=== PATIENT | male | born 1960 | race Caucasian/White ===

== ENCOUNTER 2025-03-22 14:40 | Emergency (ER) | payer MEDICARE, SELFPAY ==
[2025-03-22] VITALS (24 sets, daily range): BP systolic 105–158; BP diastolic 66–85; PULSE 56–90; TEMP 37.2; O2SAT 92–95
--- NOTE | 2025-03-22 14:51 | ECG_ITS ---
The [facility] Test Date: 2025-03-22 Pat Name: MARY NUGENT Department: Room: - Gender: Male Credit Risk Specialist: : 1960 Requested By: Order Number: [id number] Reading MD: SRINI POLLOCK M.D. Measurements Intervals [place] Rate: 64 P: 50 [place]: 154 QRS: -12 QRSD: 80 T: 38 QT: 380 QTc: 390 Interpretive Statements 1100 Sinus rhythm 8102 Low QRS voltage in chest leads Abnormal ECG No previous ECG available for comparison Electronically Signed On 03-22-2025 18:25:03 EDT by SRINI POLLOCK M.D.
--- NOTE | 2025-03-22 14:51 | CT_ITS ---
The [address] [address] Patient Name: MARY NUGENT MRN: [id number] date: 1960 Sex: M Assigned Patient Location: ED.MAIN Current Patient Location: ED.MAIN Accession/Order Number: [id number] Exam Date: 03/22/2025 15:25 Report Date: 03/22/2025 15:29 At the request of: MARGARITA CHAN NP Procedure: CT head/brain wo con CT BRAIN WITHOUT CONTRAST: CLINICAL HISTORY: dizziness COMPARISON: None TECHNIQUE: Contiguous axial unenhanced images were obtained through the brain. This CT exam was performed using one or more following dose reduction techniques: Automated exposure control, adjustment of the mA and/or kV according to patient size, or use of iterative reconstruction technique. FINDINGS: There is no evidence of midline shift, intra or extra-axial fluid collection, hemorrhage or CT evidence of acute large vascular distribution stroke. Central involutional changes and moderate periventricular and subcortical hypoattenuation suggestive of chronic small vessel ischemic disease. Intracranial vascular calcifications. Cataract surgery. Visualized paranasal sinuses are clear. The surrounding soft tissues are normal. CT/CT head/brain wo con IMPRESSION: NO ACUTE INTRACRANIAL ABNORMALITY. MODERATE CHRONIC SMALL VESSEL CHANGE Impression dictated by: Andres Arias M.D. 03/22/2025 3:29 PM Dictation Location: [place] [address] Electronically authenticated by: [id number] Y Date: 03/22/2025 15:29
--- OUTSIDE RECORDS SUMMARY | 2025-03-22 14:51 | XMS_ITS | Encounter Summary ---
Author Organization [facility] Sys tem Address [id number] [address] [place] [address] Care Team Providers Care Forging Die Sinker Name Role Phone Pablo Kiran Primary Care Provider [phone] Reason for Visit * Reason Onset Date Comments PT Discharge 07/17/2024 Encounter Details Date Type Department Care Team (Late st Contact Info) Description 07/17/2024 Telephone [facility] [address] [place] [id number] Que Ohara MD [address] [place], [place] [id number] PT Discharge Social History Tobacco Use Types Packs/Day Years Used Date Smoking Tobacco: Never Smokeless Tobacco: Never Alcohol Use Standard Drinks/Week Comments Never 0 (1 standard drink = 0.6 oz pur e alcohol) C Utilities Answer Date Recorded In the past 12 months has [employer]), gas, oil, or water [employer] threatened to shut off services in your home? No 07/13/2024 AUDIT-C Answer Date Recorded Q1: How often do you have a drink containing alcohol? Never 07/13/2024 Q2: How many drinks containi ng alcohol do you have on a typical day when you are drinking? Patient does not drink Q3: How often do you have si x or more drinks on one occasion? Never 07/13/2024 PHQ-2 Answer Date Recorded Total Score 0 07/13/2024 PRAPARE - Transportation Answer Date Re corded In the past 12 months, has l ack of transportation kept you from medical appointments or from getting medications? No 06/21 In the past 12 months, has l ack of transportation kept you from meetings, work, or from getting things needed for daily living? No 07/13/2024 Housing Instability Answer Date Recorde d Are you worried or concerned that in the next two months you may not have stable housing that you own, rent or stay in as a part of a household? No 07/13/2024 Hunger Screening Answer Date Recorded Within the past 12 months we worried whether our food would run out before we got money to buy more. Never True 07/13/2024 Within the past 12 months th e food we bought just didn't last and we didn't have money to get more. Never True 07/13/2024 Sex and Gender Information Value Date Recorded Sex Assigned at Not on file Legal Sex Male 9:06 PM EDT Gender Identity Not on file Sexual Orientation Not on file documented as of this encounter Miscellaneous Notes * Telephone Encounter - Alaina Barry - 07/17/2024 12:51 PM EDT PER MESSAGE FROM THE 07/14/2024 D/C LIST: PER [facility]; PT DCD FROM [facility] DX:Elevated high sensitivity troponin with a peak of 2300 in the setting of acute PE -PT NEEDS TO F/U IN 1-2 WEEKS-[facility] * Telephone Encounter - Alem Wilkinson - 07/17/2024 12:51 PM EDT Pt lives closer to [facility] * Telephone Encounter - Sary Silva - 07/17/2024 12:51 PM EDT Called pt no answer unable to LMOM * Telephone Encounter - Sary Silva - 07/17/2024 12:51 PM EDT CALLED PT NO ANSWER UNABLE TO LM WILL SEND LETTER documented in this encounter Plan of Treatment Upcoming Encounters Date Type Department Care Team (Late st Contact Info) Description 04/30/2025 9:30 AM EDT Appointment [facility] - V[facility] [address] [place] [address] Trudy Asencio, DO [address] [place] [address] 05/07/2025 9:00 AM EDT Office Visit [facility] [address] [place] [address] Trudy Asencio, DO [address] [facility] [address] [place] [address] documented as of this encounter Visit Diagnoses Not on filedocumented in this encounter Additional Health Concerns Assessment Noted Time PHQ-9 Depression Total Score: 0 07/13/20 24 6:43 PM EDT documented as of this encounter Care Teams Forging Die Sinker Relationship Specialty Start Date End Date Pablo Kiran PA [address] [facility] [address] [place] [address] PCP - General Unknown Physician Specialty 07/12/24 documented as of this encounter
--- OUTSIDE RECORDS SUMMARY | 2025-03-22 14:51 | XMS_ITS | Clinical Summary ---
Author Organization [facility] Address [address] [place] [address] Care Team Providers [employer] Presser Name Role Phone Mic Kiran DO Primary Care Provider [phone] Allergies Active Allergy Reactions Criticality Noted Date Comments Nsaids Medium 12/18/2021 Has CKD-2 Penicillins Rash Medium 10/04/2021 Acetaminophen Medium 01/11/2023 Has elevated LFT's Medications cetirizine 10 MG tablet Take 1 tablet by mouth daily. OTC Active cholecalciferol 50 MCG (2000 UNIT) tablet Take 1 tablet by mouth daily. OTC Active Diclofenac sodium 1 % Gel gel Apply 2 g topically 2 times daily as needed. Cancel previous refills 100 g 4 Active Albuterol 108 (90 Base) MCG/ACT Aero Soln inhaler Inhale 2 puffs every 6 hours as needed for Shortness of Breath or Breathing Treatment. Cancel previous refills 18 g 4 Active Levothyroxine (Synthroid) 50 MCG tablet Take 1 tablet by mouth every morning before breakfast. Cancel previous refills. Dispense SAME GENERIC BRAND each refill 90 tablet 5 Active Montelukast 10 MG tablet Take 1 tablet by mouth at bedtime. Cancel previous refills 30 tablet 2 5 Active omeprazole [address] capsule Take 1 capsule by mouth every morning before breakfast. Cancel previous refills 30 capsule 2 5 Active Tamsulosin HCl 0.4 MG capsule Take 2 capsules by mouth at bedtime. Cancel previous refills 60 capsule 2 5 Active sildenafil citrate 100 MG tablet Take 0.5-1 tablets by mouth daily as needed. P.A. Denied. Patient to use [employer] and pay NEFF at [employer]. Cancel previous refills 6 tablet 2 5 Active fluticasone 50 MCG/ACT Suspension nasal spray 2 sprays each nostril daily 5 Active Meclizine 25 MG tablet Take 1 tablet by mouth 3 times daily as needed for Nausea / Vomiting. Cancel previous refills 90 tablet 5 Active Active Problems Problem Noted Date Diagnosed Date Aortic aneurysm without rupture 02/19/2025 Vertigo 02/05/2025 Screening for AAA (abdominal aortic aneurysm) Hypothyroidism due to acquired atrophy of thyroi d 02/05/2025 Supplemental oxygen dependen t-set at 2 LPM via [place] at bedtime 02/05/2025 Chronic midline low back pain with right-sided s ciatica 11/08/2024 History of influenza-Positive 01-01-24 11/08/2024 Family history of diabetes mellitus in sister Orthostasis 11/08/2024 Type 2 diabetes mellitus with proteinuria 2023 Proteinuria 08/21/2024 Type 2 diabetes mellitus wit h stage 2 chronic kidney disease, without long-term current use of insulin 08/16/2024 Hypertriglyceridemia 08/16/2024 History of pulmonary embolism-RLL on 07-12-24 Assessment & Plan (12/05/2024 3:19 PM EDT): Had PE 07/12/2024 (ER visit [facility]; after Shldr surgery) - on Eliquis per PCP (6 mos til 01/2025) - No recurrent VTE, bleeding. Need for immunization against influenza 08/15/20 Mild concentric right ventricular hypertrophy (R VH) 08/15/2024 Coronary artery calcification seen on CAT scan 1 10/15/2023 ASHD (arteriosclerotic heart disease) 08/15/2024 Partial nontraumatic tear of right rotator cuff 06/13/2024 Special screening for malignant neoplasm of pros sanchez 05/23/2024 Herpes zoster without complication-Left T4 derma tome 10/14/2023 Erectile dysfunction due to diseases classified elsewhere 09/30/2023 Chronic right shoulder pain 09/30/2023 Elevated LFTs 04/12/2023 Benign prostatic hyperplasia without lower urinary tract symptoms 04/12/2023 Pulmonary emphysema 01/11/2023 Kidney stone on left side 01/11/2023 Atherosclerosis of aorta 01/11/2023 Fatty liver 01/11/2023 Seasonal allergic rhinitis due to pollen 023 Near syncope 10/13/2022 Bradycardia 07/14/2022 History of pneumonia-Due to COVID-19 in -2021 0 04/17/2022 Diverticulosis of colon 04/17/2022 Lipoma of neck-4CM, left posterior neck-S/P Exci ortega 04/17/[address] nodules on CT 04/16/2022 Assessment & Plan (12/05/2024 2:57 PM EDT): - 04/15/2022 CT Chest without contrast reviewed: previous COVID19 PNA w/ bilat. Lung infiltrates on CT 10/04/21 - has Resolved; w/ residual minimal lung scarring in BLL. Previous scattered tiny lung nodules solid, less than 6 mm - Stable from 10/04/21; prob Benign. --- ffup CT 6 mos to monitor nodules and lung scarring; 10/16/22 - 11/19/2022 CT Chest w/o contrast reviewed: No acute, new lung findings. Old tiny lung nodules - Stable from 10/04/21 (RML 5 mm, RLL 6 mm). No new suspicious nodules or enlarged lymph nodes. Minimal bibasilar subpleural scarring - Similar to 03/2022. NO diffuse ILD, GGOs, pulm fibrosis UIP. --- ffup CT in 1 yr; 11/2023 - 02/25/2024 CT Chest w/o contrast reviewed: No acute, new lung findings. Old, small, tiny lung nodules 5 mm - Stable from 11/19/22 (RUL 5 mm, RML 5 mm). No new suspicious lung nodules or enlarged lymph nodes. COPD w/ mild ULP Emphysema, central bronchial airway thickening. --- follow-up CT Chest 1 year; 02/24/25 - prob Benign postinflammatory; fmr Smoker - ffup CT for stability - further evaluation, management pending results, clinical course. - Diagnostic (malignant vs benign) and management options discussed at length w/ pt; questions answered; and pt stated understanding and agreement. Assessment & Plan (05/24/2024 6:52 AM EDT): - 04/15/2022 CT Chest without contrast reviewed: previous COVID19 PNA w/ bilat. Lung infiltrates on CT 10/04/21 - has Resolved; w/ residual minimal lung scarring in BLL. Previous scattered tiny lung nodules solid, less than 6 mm - Stable from 10/04/21; prob Benign. --- ffup CT 6 mos to monitor nodules and lung scarring; 10/16/22 - 11/19/2022 CT Chest w/o contrast reviewed: No acute, new lung findings. Old tiny lung nodules - Stable from 10/04/21 (RML 5 mm, RLL 6 mm). No new suspicious nodules or enlarged lymph nodes. Minimal bibasilar subpleural scarring - Similar to 03/2022. NO diffuse ILD, GGOs, pulm fibrosis UIP. --- ffup CT in 1 yr; 11/2023 - 02/25/2024 CT Chest w/o contrast reviewed: No acute, new lung findings. Old, small, tiny lung nodules 5 mm - Stable from 11/19/22 (RUL 5 mm, RML 5 mm). No new suspicious lung nodules or enlarged lymph nodes. COPD w/ mild ULP Emphysema, central bronchial airway thickening. --- follow-up CT Chest 1 year; 02/24/25 - prob Benign postinflammatory; fmr Smoker - ffup CT for stability - further evaluation, management pending results, clinical course. - Diagnostic (malignant vs benign) and management options discussed at length w/ pt; questions answered; and pt stated understanding and agreement. Assessment & Plan (02/01/2023 6:27 AM EDT): - 04/15/2022 CT Chest without contrast reviewed: previous COVID19 PNA w/ bilat. Lung infiltrates on CT 10/04/21 - has Resolved; w/ residual minimal lung scarring in BLL. Previous scattered tiny lung nodules solid, less than 6 mm - Stable from 10/04/21; prob Benign. --- ffup CT 6 mos to monitor nodules and lung scarring; 10/16/22 - 11/19/2022 CT Chest w/o contrast reviewed: No acute, new lung findings. Old tiny lung nodules - Stable from 10/04/21 (RML 5 mm, RLL 6 mm). No new suspicious nodules or enlarged lymph nodes. Minimal bibasilar subpleural scarring - Similar to 03/2022. NO diffuse ILD, GGOs, pulm fibrosis UIP. --- ffup CT in 1 yr; 11/2023 - prob Benign postinflammatory - ffup CT for stability - further evaluation, management pending results, clinical course. - Diagnostic (malignant vs benign) and management options discussed at length w/ pt; questions answered; and pt stated understanding and agreement. Assessment & Plan (11/02/2022 1:35 PM EST): - 04/15/2022 CT Chest without contrast reviewed: previous COVID19 PNA w/ bilat. Lung infiltrates on CT 10/04/21 - has Resolved; w/ residual minimal lung scarring in BLL. Previous scattered tiny lung nodules solid, less than 6 mm - Stable from 10/04/21; prob Benign. --- ffup CT 6 mos to monitor nodules and lung scarring; 10/16/22 - prob Benign postinflammatory - ffup CT for stability - further evaluation, management pending results, clinical course. - Diagnostic (malignant vs benign) and management options discussed at length w/ pt; questions answered; and pt stated understanding and agreement. Assessment & Plan (06/05/2022 2:23 PM EDT): - 04/15/2022 CT Chest without contrast reviewed: previous COVID19 PNA w/ bilat. Lung infiltrates on CT 10/04/21 - has Resolved; w/ residual minimal lung scarring in BLL. Previous scattered tiny lung nodules solid, less than 6 mm - Stable from 10/04/21; prob Benign. --- ffup CT 6 mos to monitor nodules and lung scarring; 10/16/22 - prob Benign postinflammatory - ffup CT for stability - further evaluation, management pending results, clinical course. - Diagnostic (malignant vs benign) and management options discussed at length w/ pt; questions answered; and pt stated understanding and agreement. Mild pulmonary hypertension 04/15/2022 Secondary pulmonary arterial hypertension 2021 Assessment & Plan (12/05/2024 3:03 PM EDT): May develop secondary Pulmonary Hypertension related to cardiopulmonary disease (WHO Grp 3, 2). - 04/15/2022 Echocardiogram reviewed: Normal left and right heart function (LVEF >55%) mild pulmonary hypertension RVSP 37 likely related to underlying lung disease; with no signs of severe pulmonary hypertension ( RV, RA normal, trace TR). - monitor Echocardiogram as indicated - consider RHC Right heart catheterization, as indicated - optimize underlying conditions - consider sleep study, as indicated Assessment & Plan (05/24/2024 6:48 AM EDT): May develop secondary Pulmonary Hypertension related to cardiopulmonary disease (WHO Grp 3, 2). - 04/15/2022 Echocardiogram reviewed: Normal left and right heart function (LVEF >55%) mild pulmonary hypertension RVSP 37 likely related to underlying lung disease; with no signs of severe pulmonary hypertension ( RV, RA normal, trace TR). - monitor Echocardiogram as indicated - consider RHC Right heart catheterization, as indicated - optimize underlying conditions - consider sleep study, as indicated Assessment & Plan (02/01/2023 6:26 AM EDT): May develop secondary Pulmonary Hypertension related to cardiopulmonary disease (WHO Grp 3, 2). - 04/15/2022 Echocardiogram reviewed: Normal left and right heart function (LVEF >55%) mild pulmonary hypertension RVSP 37 likely related to underlying lung disease; with no signs of severe pulmonary hypertension ( RV, RA normal, trace TR). - monitor Echocardiogram as indicated - consider RHC Right heart catheterization, as indicated - optimize underlying conditions - consider sleep study, as indicated Assessment & Plan (11/02/2022 1:34 PM EST): May develop secondary Pulmonary Hypertension related to cardiopulmonary disease (WHO Grp 3, 2). - 04/15/2022 Echocardiogram reviewed: Normal left and right heart function (LVEF >55%) mild pulmonary hypertension RVSP 37 likely related to underlying lung disease; with no signs of severe pulmonary hypertension ( RV, RA normal, trace TR). - monitor Echocardiogram as indicated - consider RHC Right heart catheterization, as indicated - optimize underlying conditions - consider sleep study, as indicated Assessment & Plan (03/09/2022 6:56 AM EDT): May develop secondary Pulmonary Hypertension related to cardiopulmonary disease (WHO Grp 3, 2). - monitor Echocardiogram as indicated - consider RHC Right heart catheterization, as indicated - optimize underlying conditions - consider sleep study, as indicated Reactive airway disease without complication Assessment & Plan (12/05/2024 3:02 PM EDT): Fmr Smoker quit 2003; some chronic shortness of breath, cough. Early Emphysema BUL CTPE 09/2021 - was on albuterol, montelukast, cetirizine - may have more of RAD rather than mitchell obstruction/COPD - 11/19/2022 PFT: Spirometry - NORMAL, FEV1/FVC 76%, FEV1 3.21L 97% pred., FVC 4.24L 97% pred. Significant response to bronchodilator: NO or mild borderline. Lung Volume - NORMAL TLC 5/50L 89% pred., RV 48%. Diffusing Capacity: SLIGHTLY REDUCED DLCO 79% pred., DL/VA 87% (prob. Extraparenchymal cause). Results do not exclude asthma, RAD. - 04/15/2022 PFT: Spirometry within Normal limits; FEV1 2.78L 84% pred., FVC 3.87L 88%, FEV1/FVC 72%. Possible Mild Obstruction based on presence of mild or borderline response to bronchodilator or reversible airway obstruction (e.g., asthma, reactive airway disease). Possible Mld Restriction VC 78%; TLC not done. Mildly reduced diffusing capacity DLCO 69%, DL/VA 90% (which normalizes when adjusted for lung volume, suggesting extraparenchymal cause). - Consider LAMA/LABA or try triple tx Trelegy, Breztri, or other inhaler regimen, as indic; if feasible; albuterol as needed; use spacer - 06/05/22: cont Albuterol prn - 02/01/23: albuterol prn - 05/24/24 cont albuterol prn; maint inhalers, if needed - 12/05/24 cont Albuterol prn - consider Daliresp subseq as indic., as tolerated; if feasible - may also use duonebs; budesonide+formoterol nebs alternatively - patient benefits from nebulizer treatments - Inhaler technique teaching done/reviewed prev.; rinse mouth after inhaler use, especially steroid inhalers - Smoking cessation reinforced: Quit 2003 - monitor PFT prn, as indicated - monitor imaging prn, Chest radiograph as needed (CT Chest as indicated) - Pulmonary rehab program, if feasible; rec to stay active (PFT, LVEF may not qualify) - Influenza, pneumococcal, COVID19, pulm vaccines recommended, updated Assessment & Plan (05/24/2024 6:49 AM EDT): Fmr Smoker quit 2003; some chronic shortness of breath, cough. Early Emphysema BUL CTPE 09/2021 - was on albuterol, montelukast, cetirizine - may have more of RAD rather than mitchell obstruction/COPD - 11/19/2022 PFT: Spirometry - NORMAL, FEV1/FVC 76%, FEV1 3.21L 97% pred., FVC 4.24L 97% pred. Significant response to bronchodilator: NO or mild borderline. Lung Volume - NORMAL TLC 5/50L 89% pred., RV 48%. Diffusing Capacity: SLIGHTLY REDUCED DLCO 79% pred., DL/VA 87% (prob. Extraparenchymal cause). Results do not exclude asthma, RAD. - 04/15/2022 PFT: Spirometry within Normal limits; FEV1 2.78L 84% pred., FVC 3.87L 88%, FEV1/FVC 72%. Possible Mild Obstruction based on presence of mild or borderline response to bronchodilator or reversible airway obstruction (e.g., asthma, reactive airway disease). Possible Mld Restriction VC 78%; TLC not done. Mildly reduced diffusing capacity DLCO 69%, DL/VA 90% (which normalizes when adjusted for lung volume, suggesting extraparenchymal cause). - Consider LAMA/LABA or try triple tx Trelegy, Breztri, or other inhaler regimen, as indic; if feasible; albuterol as needed; use spacer - 9/16/22: cont Albuterol prn - 02/01/23: albuterol prn - 05/24/24 cont albuterol prn; maint inhalers, if needed - consider Daliresp subseq as indic., as tolerated; if feasible - may also use duonebs; budesonide+formoterol nebs alternatively - patient benefits from nebulizer treatments - Inhaler technique teaching done/reviewed prev.; rinse mouth after inhaler use, especially steroid inhalers - Smoking cessation reinforced: Quit 2003 - monitor PFT prn, as indicated - monitor imaging prn, Chest radiograph as needed (CT Chest as indicated) - Pulmonary rehab program, if feasible; rec to stay active (PFT, LVEF may not qualify) - Influenza, pneumococcal, COVID19 vaccines recommended, updated Assessment & Plan (02/01/2023 6:28 AM EDT): Fmr Smoker quit 2003; some chronic shortness of breath, cough. Early Emphysema BUL CTPE 09/2021 - was on albuterol, montelukast, cetirizine - may have more of RAD rather than mitchell obstruction/COPD - 11/19/2022 PFT: Spirometry - NORMAL, FEV1/FVC 76%, FEV1 3.21L 97% pred., FVC 4.24L 97% pred. Significant response to bronchodilator: NO or mild borderline. Lung Volume - NORMAL TLC 5/50L 89% pred., RV 48%. Diffusing Capacity: SLIGHTLY REDUCED DLCO 79% pred., DL/VA 87% (prob. Extraparenchymal cause). Results do not exclude asthma, RAD. - 04/15/2022 PFT: Spirometry within Normal limits; FEV1 2.78L 84% pred., FVC 3.87L 88%, FEV1/FVC 72%. Possible Mild Obstruction based on presence of mild or borderline response to bronchodilator or reversible airway obstruction (e.g., asthma, reactive airway disease). Possible Mld Restriction VC 78%; TLC not done. Mildly reduced diffusing capacity DLCO 69%, DL/VA 90% (which normalizes when adjusted for lung volume, suggesting extraparenchymal cause). - Consider LAMA/LABA or try triple tx Trelegy, Breztri, or other inhaler regimen, as indic; if feasible; albuterol as needed; use spacer - 06/05/22: cont Albuterol prn - 02/01/23: albuterol prn - consider Daliresp subseq as indic., as tolerated; if feasible - may also use duonebs; budesonide+formoterol nebs alternatively - patient benefits from nebulizer treatments - Inhaler technique teaching done/reviewed prev.; rinse mouth after inhaler use, especially steroid inhalers - Smoking cessation reinforced: Quit 2003 - monitor PFT prn, as indicated - monitor imaging prn, Chest radiograph as needed (CT Chest as indicated) - Pulmonary rehab program, if feasible; rec to stay active (PFT, LVEF may not qualify) - Influenza, pneumococcal, COVID19 vaccines recommended, updated Assessment & Plan (11/02/2022 1:35 PM EST): Fmr Smoker quit 2003; some chronic shortness of breath, cough. Early Emphysema BUL CTPE 09/2021 - was on albuterol, montelukast, cetirizine - may have more of RAD rather than mitchell obstruction/COPD - 04/15/2022 PFT: Spirometry within Normal limits; FEV1 2.78L 84% pred., FVC 3.87L 88%, FEV1/FVC 72%. Possible Mild Obstruction based on presence of mild or borderline response to bronchodilator or reversible airway obstruction (e.g., asthma, reactive airway disease). Possible Mld Restriction VC 78%; TLC not done. Mildly reduced diffusing capacity DLCO 69%, DL/VA 90% (which normalizes when adjusted for lung volume, suggesting extraparenchymal cause). - Consider LAMA/LABA or try triple tx Trelegy, Breztri, or other inhaler regimen, as indic; if feasible; albuterol as needed; use spacer - 06/05/22: cont Albuterol prn - consider Daliresp subseq as indic., as tolerated; if feasible - may also use duonebs; budesonide+formoterol nebs alternatively - patient benefits from nebulizer treatments - Inhaler technique teaching done/reviewed prev.; rinse mouth after inhaler use, especially steroid inhalers - Smoking cessation reinforced: Quit 2003 - monitor PFT prn, as indicated - monitor imaging prn, Chest radiograph as needed (CT Chest as indicated) - Pulmonary rehab program, if feasible; rec to stay active (PFT, LVEF may not qualify) - Influenza, pneumococcal, COVID19 vaccines recommended, updated Assessment & Plan (06/05/2022 2:25 PM EDT): Fmr Smoker quit 2003; some chronic shortness of breath, cough. Early Emphysema BUL CTPE 09/2021 - was on albuterol, montelukast, cetirizine - may have more of RAD rather than mitchell obstruction/COPD - 04/15/2022 PFT: Spirometry within Normal limits; FEV1 2.78L 84% pred., FVC 3.87L 88%, FEV1/FVC 72%. Possible Mild Obstruction based on presence of mild or borderline response to bronchodilator or reversible airway obstruction (e.g., asthma, reactive airway disease). Possible Mld Restriction VC 78%; TLC not done. Mildly reduced diffusing capacity DLCO 69%, DL/VA 90% (which normalizes when adjusted for lung volume, suggesting extraparenchymal cause). - Consider LAMA/LABA or try triple tx Trelegy, Breztri, or other inhaler regimen, as indic; if feasible; albuterol as needed; use spacer - 06/05/22: cont Albuterol prn - consider Daliresp subseq as indic., as tolerated; if feasible - may also use duonebs; budesonide+formoterol nebs alternatively - patient benefits from nebulizer treatments - Inhaler technique teaching done/reviewed prev.; rinse mouth after inhaler use, especially steroid inhalers - Smoking cessation reinforced: Quit 2003 - monitor PFT prn, as indicated - monitor imaging prn, Chest radiograph as needed (CT Chest as indicated) - Pulmonary rehab program, if feasible; rec to stay active (PFT, LVEF may not qualify) - Influenza, pneumococcal, COVID19 vaccines recommended, updated Assessment & Plan (03/09/2022 10:26 AM EDT): Fmr Smoker quit 2003; some chronic shortness of breath, cough. Early Emphysema BUL CTPE 09/2021 - was on albuterol, montelukast, cetirizine - Consider LAMA/LABA or try triple tx Trelegy, Breztri, or other inhaler regimen, as indic; if feasible; albuterol as needed; use spacer - consider Daliresp subseq as indic., as tolerated; if feasible - may also use duonebs; budesonide+formoterol nebs alternatively - patient benefits from nebulizer treatments - Inhaler technique teaching done/reviewed prev.; rinse mouth after inhaler use, especially steroid inhalers - Smoking cessation reinforced: Quit 2003 - monitor PFT prn, as indicated - monitor imaging prn, Chest radiograph as needed (CT Chest as indicated) - Pulmonary rehab program, if feasible; rec to stay active - Influenza, pneumococcal, COVID19 vaccines recommended, updated Occipital neuralgia of left side 02/17/2022 Left inguinal hernia 01/23/2022 Spondylosis of lumbar region without myelopathy or radiculopathy 01/23/2022 Hepatitis A immune 12/20/2021 Hyperbilirubinemia 12/20/2021 Hyperlipidemia LDL goal <70 12/18/2021 CKD (chronic kidney disease) stage 2, GFR 60-89 ml/min 12/18/2021 Idiopathic chronic gout without tophus Overweight (BMI 25.0-29.9) 12/16/2021 Nodule of middle lobe of right lung-6 mm 022 Assessment & Plan (12/05/2024 2:58 PM EDT): - 10/04/21 CTPE Reviewed: No PE, BUL GGOs w/ mild subpleural scarring, BLL subpleural scarring, No obvious honeycombing; RML pleural-based 6 mm nodule, no enlarged nodes. Early Emphysematous changes BUL. IMPRESSION: No evidence for pulmonary embolism, aortic aneurysm, or aortic dissection. Patchy bilateral upper lobe groundglass airspace disease with subpleural scarring and fibrotic changes with honeycombing. Bilateral lower lobe pleural-based scarring. Correlate for atypical viral pneumonitis. Middle lobe 6 mm pleural-based pulmonary nodule. Consider follow-up. 3 mm nonobstructive left renal calculus. Extensive colonic diverticulosis without acute diverticulitis. - prob Benign, post-inflammatory; fmr Smoker quit 2003 - ffup CT for stability; below - 04/15/2022 CT Chest without contrast reviewed: previous COVID19 PNA w/ bilat. Lung infiltrates on CT 10/04/21 - has Resolved; w/ residual minimal lung scarring in BLL. Previous scattered tiny lung nodules solid, less than 6 mm - Stable from 10/04/21; prob Benign. --- ffup CT 6 mos to monitor nodules and lung scarring; 10/16/22 - 02/25/2024 CT Chest w/o contrast reviewed: No acute, new lung findings. Old, small, tiny lung nodules 5 mm - Stable from 11/19/22 (RUL 5 mm, RML 5 mm). No new suspicious lung nodules or enlarged lymph nodes. COPD w/ mild ULP Emphysema, central bronchial airway thickening. --- follow-up CT Chest 1 year; 02/24/25 - further evaluation, management pending results, clinical course. - Diagnostic (malignant vs benign) and management options discussed at length w/ pt; questions answered; and pt stated understanding and agreement. Assessment & Plan (06/05/2022 2:22 PM EDT): - 10/04/21 CTPE Reviewed: No PE, BUL GGOs w/ mild subpleural scarring, BLL subpleural scarring, No obvious honeycombing; RML pleural-based 6 mm nodule, no enlarged nodes. Early Emphysematous changes BUL. IMPRESSION: No evidence for pulmonary embolism, aortic aneurysm, or aortic dissection. Patchy bilateral upper lobe groundglass airspace disease with subpleural scarring and fibrotic changes with honeycombing. Bilateral lower lobe pleural-based scarring. Correlate for atypical viral pneumonitis. Middle lobe 6 mm pleural-based pulmonary nodule. Consider follow-up. 3 mm nonobstructive left renal calculus. Extensive colonic diverticulosis without acute diverticulitis. - prob Benign, post-inflammatory; fmr Smoker quit 2003 - ffup CT for stability; below - 04/15/2022 CT Chest without contrast reviewed: previous COVID19 PNA w/ bilat. Lung infiltrates on CT 10/04/21 - has Resolved; w/ residual minimal lung scarring in BLL. Previous scattered tiny lung nodules solid, less than 6 mm - Stable from 10/04/21; prob Benign. --- ffup CT 6 mos to monitor nodules and lung scarring; 10/16/22 - further evaluation, management pending results, clinical course. - Diagnostic (malignant vs benign) and management options discussed at length w/ pt; questions answered; and pt stated understanding and agreement. Assessment & Plan (03/09/2022 7:00 AM EDT): - 10/04/21 CTPE Reviewed: No PE, BUL GGOs w/ mild subpleural scarring, BLL subpleural scarring, No obvious honeycombing; RML pleural-based 6 mm nodule, no enlarged nodes. Early Emphysematous changes BUL. IMPRESSION: No evidence for pulmonary embolism, aortic aneurysm, or aortic dissection. Patchy bilateral upper lobe groundglass airspace disease with subpleural scarring and fibrotic changes with honeycombing. Bilateral lower lobe pleural-based scarring. Correlate for atypical viral pneumonitis. Middle lobe 6 mm pleural-based pulmonary nodule. Consider follow-up. 3 mm nonobstructive left renal calculus. Extensive colonic diverticulosis without acute diverticulitis. - prob Benign, post-inflammatory; fme Smoker quit 2003 - ffup CT for stability - further evaluation, management pending results, clinical course. - Diagnostic (malignant vs benign) and management options discussed at length w/ pt; questions answered; and pt stated understanding and agreement. Vitamin D deficiency 12/16/2021 Hypoalbuminemia 12/16/2021 Elevated blood pressure reading 12/16/2021 History of [id number] 10-04-2021 Former smoker 12/16/2021 History of ETOH abuse 12/16/2021 Gastroesophageal reflux disease without esophagi tis 12/16/2021 Migraine with aura and witho ut status migrainosus, not intractable 12/16/2021 Well adult exam 12/16/2021 Snoring 12/16/2021 S/P lumbar discectomy 12/16/2021 Asymptomatic varicose veins of right lower extre mity 12/16/2021 Bilateral plantar fasciitis 12/16/2021 Resolved Problems Problem Noted Date Diagnosed Date Resolved Date Acute pulmonary embolism 07/14/2024 RUANO (dyspnea on exertion) 05/23/2024 Influenza A-positive 01-01-24 01/02/2024 11/08/2024 Urinary hesitancy 10/13/2023 06/13/2024 SOB (shortness of breath) 01/11/2023 Special screening for malign ant neoplasm of prostate 01/11/2023 01/11/2023 Chronic midline low back alvarado n without sciatica 04/17/2022 11/08/2024 Chronic pain of both shoulders 04/17/2022 09/30/2023 Insomnia 04/17/2022 01/11/2023 Episodic lightheadedness 04/17/2022 Blurry vision, right eye 04/17/2022 Post-acute COVID-19 syndrome 03/09/2022 05/24/2024 Interstitial lung disease 03/09/2022 Assessment & Plan (02/01/2023 6:26 AM EDT): Chest radiograph w/ some increased lung markings; possible element of Interstitial lung disease ILD, postinflammatory fibrosis s/p COVID19 PNA 09/2021 - 10/04/21 CTPE Reviewed: No PE, BUL GGOs w/ mild subpleural scarring, BLL subpleural scarring, No obvious honeycombing; RML pleural-based 6 mm nodule, no enlarged nodes. Early Emphysematous changes BUL. - ffup CT Chest, below - 04/15/2022 CT Chest without contrast reviewed: previous COVID19 PNA w/ bilat. Lung infiltrates on CT 10/04/21 - has Resolved; w/ residual minimal lung scarring in BLL. Previous scattered tiny lung nodules solid, less than 6 mm - Stable from 10/04/21; prob Benign. --- ffup CT 6 mos to monitor nodules and lung scarring; 10/16/22 - 11/19/2022 CT Chest w/o contrast reviewed: No acute, new lung findings. Old tiny lung nodules - Stable from 10/04/21 (RML 5 mm, RLL 6 mm). No new suspicious nodules or enlarged lymph nodes. Minimal bibasilar subpleural scarring - Similar to 03/2022. NO diffuse ILD, GGOs, pulm fibrosis UIP. --- ffup CT in 1 yr to monitor nodules; 11/2023 - monitor chest imaging, PFT, 6mwt prn, as indic - further evaluation, management pending results, clinical course. Assessment & Plan (11/02/2022 1:33 PM EST): Chest radiograph w/ some increased lung markings; possible element of Interstitial lung disease ILD, postinflammatory fibrosis s/p COVID19 PNA 09/2021 - 10/04/21 CTPE Reviewed: No PE, BUL GGOs w/ mild subpleural scarring, BLL subpleural scarring, No obvious honeycombing; RML pleural-based 6 mm nodule, no enlarged nodes. Early Emphysematous changes BUL. - ffup CT Chest, below - 04/15/2022 CT Chest without contrast reviewed: previous COVID19 PNA w/ bilat. Lung infiltrates on CT 10/04/21 - has Resolved; w/ residual minimal lung scarring in BLL. Previous scattered tiny lung nodules solid, less than 6 mm - Stable from 10/04/21; prob Benign. --- ffup CT 6 mos to monitor nodules and lung scarring; 10/16/22 - monitor chest imaging, PFT, 6mwt prn, as indic - further evaluation, management pending results, clinical course. Assessment & Plan (06/05/2022 2:22 PM EDT): Chest radiograph w/ some increased lung markings; possible element of Interstitial lung disease ILD, postinflammatory fibrosis s/p COVID19 PNA 09/2021 - 10/04/21 CTPE Reviewed: No PE, BUL GGOs w/ mild subpleural scarring, BLL subpleural scarring, No obvious honeycombing; RML pleural-based 6 mm nodule, no enlarged nodes. Early Emphysematous changes BUL. - ffup CT Chest, below - 04/15/2022 CT Chest without contrast reviewed: previous COVID19 PNA w/ bilat. Lung infiltrates on CT 10/04/21 - has Resolved; w/ residual minimal lung scarring in BLL. Previous scattered tiny lung nodules solid, less than 6 mm - Stable from 10/04/21; prob Benign. --- ffup CT 6 mos to monitor nodules and lung scarring; 10/16/22 - monitor chest imaging, PFT, 6mwt prn, as indic - further evaluation, management pending results, clinical course. Assessment & Plan (03/09/2022 6:58 AM EDT): Chest radiograph w/ some increased lung markings; possible element of Interstitial lung disease ILD, postinflammatory fibrosis s/p COVID19 PNA 09/2021 - 10/04/21 CTPE Reviewed: No PE, BUL GGOs w/ mild subpleural scarring, BLL subpleural scarring, No obvious honeycombing; RML pleural-based 6 mm nodule, no enlarged nodes. Early Emphysematous changes BUL. - ffup CT Chest - monitor chest imaging, PFT, 6mwt prn, as indic - further evaluation, management pending results, clinical course. Hyperglycemia 12/16/2021 08/16/2024 SOB (shortness of breath) 12/16/2021 Caffeine abuse, continuous 12/16/2021 0 01/23/2022 Elevated liver enzymes 12/16/202104/12 Pneumonia due to COVID-19 vi adrien-Positive 10-04-2021 12/16/2021 04/17/2022 Assessment & Plan (03/09/2022 6:55 AM EDT): Seen ED 10/04/21; see Post-COVID synd. Atypical chest pain 12/16/2021 10/13/19 23 Chronic fatigue 12/16/2021 04/12/2023 Goiter 12/16/2021 04/17/2022 Costochondritis 12/16/2021 10/13/2022 Encounters Date Type Department Care Team Description 02/27/2025 8:15 AM EDT - 02/27/2025 11:59 PM EDT Hospital Encounter [facility] Pulmonary [address] [place] [address] Schuyler Dejesus MD Discharge Disposition: Home or Self Care 02/27/2025 8:15 AM EDT - 02/27/2025 11:59 PM EDT Hospital Encounter [facility] Pulmonary [address] [place] [address] Schuyler Dejesus MD Discharge Disposition: Home or Self Care 02/27/2025 8:14 AM EDT Hospital Encounter [facility] CT Scan [address] [place] [address] Schuyler Dejesus MD Discharge Disposition: Home or Self Care 02/19/2025 8:00 AM EDT - 02/19/2025 11:59 PM EDT Hospital Encounter [facility] Ultrasound [address] [place] [address] Mic Kiran, Discharge Disposition: Home or Self Care 02/19/2025 Results Follow-Up [address] [place] [address] Mic Kiran, DO US AORTA RETROPERITONEAL 02/05/2025 9:30 AM EDT Office Visit [address] [address] Mic Kiran, DO Type 2 diabetes mellitus with stage 2 chronic kidney disease, without long-term current use of insulin (Primary Dx); Type 2 diabetes mellitus with proteinuria; Aortic aneurysm without rupture, unspecified portion of aorta-3/17 CM on AOrta US done 02-19-25; Hyperlipidemia LDL goal <70; Hypertriglyceridemia; Hypothyroidism due to acquired atrophy of thyroid; Hypoalbuminemia; Idiopathic chronic gout without tophus, unspecified site; Vertigo; Hyperbilirubinemia; Multiple lung nodules on CT; Nodule of middle lobe of right lung-6 mm; Pulmonary emphysema, unspecified emphysema type; Seasonal allergic rhinitis due to pollen; Mild intermittent reactive airway disease without complication; Snoring; Supplemental oxygen dependent-set at 2 LPM via [place] at bedtime; ASHD (arteriosclerotic heart disease); Asymptomatic varicose veins of right lower extremity; Atherosclerosis of aorta; Coronary artery calcification seen on CAT scan; Bradycardia; Elevated blood pressure reading; Migraine with aura and without status migrainosus, not intractable; Mild concentric right ventricular hypertrophy (RVH); Mild pulmonary hypertension; Near syncope; Orthostasis; Secondary pulmonary arterial hypertension; Diverticulosis of colon; Fatty liver; Gastroesophageal reflux disease without esophagitis; Vitamin D deficiency; Occipital neuralgia of left side; Chronic midline low back pain with right-sided sciatica; Bilateral plantar fasciitis; Chronic right shoulder pain; Spondylosis of lumbar region without myelopathy or radiculopathy; Partial nontraumatic tear of right rotator cuff; Benign prostatic hyperplasia without lower urinary tract symptoms; CKD (chronic kidney disease) stage 2, GFR 60-89 ml/min; Kidney stone on left side; Elevated LFTs; Erectile dysfunction due to diseases classified elsewhere; Lipoma of neck-4CM, left posterior neck-S/P Excision; Former smoker; Hepatitis A immune; Overweight (BMI 25.0-29.9); Proteinuria, unspecified type; S/P lumbar discectomy; Left inguinal hernia; History of pulmonary embolism-RLL on 07-12-24; History of pneumonia-Due to COVID-19 in ; History of influenza-Positive 01-01-24; History of ETOH abuse; Family history of diabetes mellitus in sister; Screening for AAA (abdominal aortic aneurysm) 01/24/2025 Results Follow-Up [facility] Medicine [address] [facility] [address] [place] [address] Mic Kiran, DO VITAMIN D (25-HYDROXY,TOTAL), URIC ACID, TSH, Additional followed-up results: 4 01/09/2025 [facility]phone [facility] [address] [phone] Misty Puentes LPN Results 01/08/2025 Results Follow-Up [facility] Pulmonary Disease [facility] [address] [place] [address] Schuyler Dejesus MD MONITOR REPORTS (SCANNED) 01/05/2025 10:00 AM EDT Clinical Support Encounter [facility] Sleep Lab [address] [place] [address] Schuyler Dejesus MD Secondary pulmonary arterial hypertension; Chronic obstructive pulmonary disease, unspecified COPD type 01/02/2025 9:40 AM EDT Office Visit [facility] Orthopedics [address] [place] [address] Michael Davidson MD S/P rotator cuff repair (Primary Dx) 01/02/2025 Telephone [facility] [address] [address] Misty Puentes LPN Results 01/02/2025 Results Follow-Up [facility] Pulmonary [place] [address] [facility] 1st [place] [id number] Schuyler Dejesus MD ECHOCARDIOGRAM 12/29/2024 7:19 AM EDT - 12/29/2024 11:59 PM EDT Hospital Encounter [facility] [address] [place] [address] Schuyler Dejesus MD Discharge Disposition: Home or Self Care from Last 3 Months Immunizations Immunization Administration Dates Next Due [id number] COVID-19 monovalen t vaccine, AD26, Amauri 0.5 ML 12/27/2020 Influenza Vaccine, MDCK PF 08/15/2024 Influenza, injectable, quadrivalent, preservativ e free 07/14/2022 Td Vaccine, Unspecified 12/19/2015 Family History Medical History Relation Name Comments No known problems Father Arthritis - Osteo Mother Diabetes Sister Relation Name Status Comments Father Mother Sister Social History Tobacco Use Types Packs/Day Years Used Date Smoking Tobacco: Former Cigarettes 2 26 0 03/20/1978 - 03/20/2004 Smokeless Tobacco: Never Tobacco Cessation:Counseling Given: No Alcohol Use Standard Drinks/Week Comments Not Currently 0 (1 standard drink = 0.6 oz pur e alcohol) HX ETOH abuse. Quit in 1983 Overall Financial Resource Strain (CARDIA) Answe r Date Recorded How hard is it for you to pa y for the very basics like food, housing, medical care, and heating? Not hard at all 02/05/2025 NCSS - Food Insecurity Answer Date Gregor rded Within the past 12 months, d id you worry that your food would run out before you got money to buy more? No 02/05/2025 Within the past 12 months, d id the food you bought just not last and you didn t have money to get more? Yes 02/05/2025 NCSS - Housing/Utilities Answer Date Re corded Do you have housing? Yes 02/05/2025 Are you worried about losing your housing? No 02/05/2025 Within the past 12 months, h ave you or your family members you live with been unable to get utilities (heat, electricity) when it was really needed? No 02/05/2025 NCSS - Transportation Answer Date Recor ded Within the past 12 months, h as lack of transportation kept you from medical appointments, getting your medicines, non-medical meetings or appointments, work, or from getting things that you need? No 02/05/2025 NCSS - Utilities Answer Date Recorded Within the past 12 months, h ave you or your family members you live with been unable to get utilities (heat, electricity) when it was really needed? No 02/05/2025 Sex and Gender Information Value Date Recorded Sex Assigned at Not on file Legal Sex Male 9:07 PM EST Gender Identity Not on file Sexual Orientation Not on file Last Filed Vital Signs Vital Sign Reading Time Taken Comments Blood Pressure 137/67 02/05/2025 9:23 AM EDT Pulse 52 02/05/2025 9:23 AM EDT Temperature 36.6 C (97.9 F) 02/05/2025 9:23 AM EDT Respiratory Rate 14 02/05/2025 9:23 AM EDT Oxygen Saturation 98% 02/05/2025 9:23 AM EDT Inhaled Oxygen Concentration - - Weight 81.6 kg (180 lb) 02/05/2025 9:23 AM EDT Height 172.7 cm (5' 8 ) 02/05/2025 9:23 AM EDT Body Mass Index 27.37 02/05/2025 9:23 AM EDT Plan of Treatment Upcoming Encounters Date Type Department Care Team (Late st Contact Info) Description 05/02/2025 9:30 AM EDT Office Visit [facility] Family Medicine [address] [facility] [address] [place] [address] Mic Kiran DO [address] [facility] [address] [place] [address] 06/07/2025 8:00 AM EDT Office Visit [facility] Pulmonary Disease [facility] [address] [facility] [address] [place] [address] Michael Boyce, FINANCIAL SYSTEMS MANAGER [address] [place] [address] 07/09/2025 8:20 AM EDT Office Visit [facility] Orthopedics [address] [place] [address] Michael Davidson MD [address] [facility] [place] [address] 08/06/2025 9:30 AM EST Office Visit [facility] Optometry [place] [address] [place] [address] Alin Donato, OD [address] [facility], [place] [id number] Health Maintenance Due Date Last Done Comments PSA 06/08/2025 06/08/2024, 05/2023, 01/11/2023, Additional history exists TSH 02/19/2026 02/19/2025, 03/2025, 08/16/2024, Additional history exists COLONOSCOPY 05/14/2029 05/14/2022 LIPID SCREENING 01/24/2030 01/24/2025, 07/22, 06/08/2024, Additional history exists HIV SCREENING DISCUSSION Discontinued 12/16/2021 HEPATITIS C VIRUS SCREENING Completed 12/18/2021, 12/16/2021 (Declined) COLORECTAL CANCER SCREENING DISCUSSION Discontinued 05/14/2022, 04/17/2022, 01/23/2022, Additional history exists COVID-19 VACCINE Discontinued 07/14/2022 (Dec lined), 04/17/2022 (Declined), 01/23/2022 (Declined), Additional history exists PNEUMOCOCCAL VACCINE SERIES Discontinued 02/03/2024 (Declined), 10/13/2023 (Declined), 09/30/2023 (Declined), Additional history exists TDAP (ADULT) Addressed 02/03/2024 (Decl ined), 09/30/2023 (Declined), 07/20/2023 (Declined), Additional history exists Overridden with the intention of not completing the topic TETANUS Discontinued 02/03/2024 (Decl ined), 10/13/2023 (Declined), 09/30/2023 (Declined), Additional history exists ZOSTER (SHINGLES) VACCINE Addressed 2023 (Declined), 10/13/2023 (Declined), 09/30/2023 (Declined), Additional history exists Overridden with the intention of not completing the topic PROSTATE CANCER SCREENING DISCUSSION Discontinued 06/08/2024, 06/08/2024, 05/23/2024, Additional history exists INFLUENZA VACCINE Discontinued 08/15/2024, (Declined), 10/13/2023 (Declined), Additional history exists ABDOMINAL AORTIC ANEURYSM HIGH RISK SCREEN Completed 02/19/2025 HEP B VACCINE Discontinued PNEUMOCOCCAL VACCINE SERIES Discontinued RSV VACCINE Discontinued Goals Goal Patient Goal Type Associated Problems Recent Progress Patient-Stated? Author Physical Therapy Physical Therapy No Lilly Kiran, PT Note: 1. The patient will safely, correctly, and independently demonstrate the ability to perform a progressive HEP to achieve maximum rehabilitation potential. 2. The patient will report a decreased subjective pain rating 0-1/10 to allow the patient to discontinue pain medications and sleep a full night. 3. The patient will increase shoulder AROM to WFL or greater to improve reaching overhead, behind the back, and across the body to return to dressing, grooming, household management tasks and work duties. 4. The patient will improve shoulder and scapular strength to at least 4+/5 to assist with lifting, pushing, pulling and carrying tasks. 5. The patient will meet goals suggested by surgical protocols if applicable. Medical Devices Implanted Type Area Chief Recordist Device Identifier Shelf Expiration Date Model / Serial / Lot Lens Implanted:Qty: 1 on 06/01/2022 by Juan Francisco Angel MD at [facility] ([facility] REV LOC Right: Eye 01/05/2027 [id number] / [id number] / Acrysof Iq Iol Implanted:Qty: 1 on 08/03/2022 by Juan Francisco Angel MD at [employer] ([facility])[facility] REV LOC Left: Eye 05/21/2026 [id number] / [id number] / Speedbridge Kit W/Preloaded Fibertape - [id number] Implanted:Qty: 1 on 07/06/2024 by Michael Davidson MD at [facility] Right: Shoulder ARTHREX 01/18/2028 [id number] / / [id number] Procedures Procedure Name Priority Date/Time Associated Diagnosis Comments PFT COMPLETE Routine 02/27/2025 10:00 AM EDT Secondary pulmonary arterial hypertension Mild intermittent reactive airway disease without complication EXERCISE-6 MIN. WALK Routine 02/27/2025 9:00 AM EDT Secondary pulmonary arterial hypertension Chronic obstructive pulmonary disease, unspecified COPD type CT CHEST WITHOUT CONTRAST Routine 02/27/2025 8:22 AM EDT Lung nodule US AORTA RETROPERITONEAL Routine 02/19/2025 9:12 AM EDT Screening for AAA (abdominal aortic aneurysm) TSH Today 02/19/2025 8:25 AM EDT Hypothyroidism due to acquired atrophy of thyroid HC MICROALBUMIN URINE RADHA Today 01/24/2025 2:53 PM EDT Type 2 diabetes mellitus with stage 2 chronic kidney disease, without long-term current use of insulin Type 2 diabetes mellitus with proteinuria URINE PROTEIN/CREA RATIO, RANDOM Today 01/24/2025 2:53 PM EDT Type 2 diabetes mellitus with stage 2 chronic kidney disease, without long-term current use of insulin Type 2 diabetes mellitus with proteinuria HC CBC EDIFF & PLATELET Today 01/25/20 8:43 AM EDT Type 2 diabetes mellitus with stage 2 chronic kidney disease, without long-term current use of insulin Type 2 diabetes mellitus with proteinuria Idiopathic chronic gout without tophus, unspecified site Hyperlipidemia LDL goal <70 Hyperbilirubinemia Hypoalbuminemia COMPREHENSIVE METABOLIC PANEL Today 01/24/2025 8:43 AM EDT Type 2 diabetes mellitus with stage 2 chronic kidney disease, without long-term current use of insulin Type 2 diabetes mellitus with proteinuria Idiopathic chronic gout without tophus, unspecified site Hyperlipidemia LDL goal <70 Hyperbilirubinemia Hypoalbuminemia HEMOGLOBIN A1C Today 01/24/2025 8:43 AM EDT Type 2 diabetes mellitus with stage 2 chronic kidney disease, without long-term current use of insulin Type 2 diabetes mellitus with proteinuria LIPID PANEL W CALCULATED LDL Today 01/24/2025 8:43 AM EDT Type 2 diabetes mellitus with stage 2 chronic kidney disease, without long-term current use of insulin Type 2 diabetes mellitus with proteinuria Idiopathic chronic gout without tophus, unspecified site Hyperlipidemia LDL goal <70 Hyperbilirubinemia Hypoalbuminemia TSH Today 01/24/2025 8:43 AM EDT Type 2 diabetes mellitus with stage 2 chronic kidney disease, without long-term current use of insulin Type 2 diabetes mellitus with proteinuria Idiopathic chronic gout without tophus, unspecified site Hyperlipidemia LDL goal <70 Hyperbilirubinemia Hypoalbuminemia URIC ACID Today 01/24/2025 8:43 AM EDT Type 2 diabetes mellitus with stage 2 chronic kidney disease, without long-term current use of insulin Type 2 diabetes mellitus with proteinuria Idiopathic chronic gout without tophus, unspecified site VITAMIN D (25-HYDROXY,TOTAL) Today 01/24/2025 8:43 AM EDT Type 2 diabetes mellitus with stage 2 chronic kidney disease, without long-term current use of insulin Type 2 diabetes mellitus with proteinuria Vitamin D deficiency MONITOR REPORTS Routine 01/05/2025 11:26 AM EDT HI DRAIN/INJECT LARGE JOINT/BURSA PERFORMABLE Routine 01/02/2025 9:40 AM EDT S/P rotator cuff repair HI ECHOCARDIOGRAM W/O 3D Routine 12/29/2024 7:47 AM EDT Secondary pulmonary arterial hypertension History of pulmonary embolism-RLL on 07-12-24 PSA, SCREENING Today 06/08/2024 11:26 AM EDT Special screening for malignant neoplasm of prostate SCREENING COLONOSCOPY Routine 05/14/2022 9:08 AM EDT Encounter for screening for malignant neoplasm of colon HEPATITIS A, B, C Routine 12/18/2021 8:0 1 AM EDT Elevated liver enzymes from Last 3 Months or Most Recently Relevant to Health Maintenance Results * PFT COMPLETE (02/27/2025 10:00 AM EDT) Narrative Schuyler Dejesus MD - 02/27/2025 10:00 AM EDT Schuyler Ibarra MD 02/27/2025 10:21 AM 02/27/2025 Raheel Nugent is a 65 y.o. male, Date of :1960. Dx: COPD, pulmonary hypertension. Ht 68 in, Wt 180 lbs. Smoker: yes quit. Medications not listed. Pt efforts: good. Data appear acceptable and reproducible: fair. Albuterol given for postbronchodilator spirometry. Procedure: Pulmonary Function Test PFT including spirometry, spirometry with bronchodilator response, lung volumes, Diffusion capacity and Flow Volume Loop were performed during this session. Impression: - 02/27/2025 PFT: - Post-bronchodilator Spirometry - NORMAL; FEV1/FVC 73%, FEV1 2.89L 90% predicted, FVC 3.98L 93% predicted; w/ mildly reduced SMALL AIRWAY flows. - Significant increase/response to bronchodilator: NO response during this testing (this does not preclude clinical benefit from bronchodilators). - Lung Volume - NORMAL TLC 5.76L 94% predicted, RV 1.76L 76% predicted. - Diffusing Capacity: MILDLY REDUCED DLCO 70% predicted, DL/VA 96% (which normalizes when adjusted for lung volume, suggesting probably extraparenchymal cause; eg., body habitus). - Flow Volume Loops - suggestive of Restrictive pattern; No overt upper airway obstruction pattern. Results do not exclude clinical diagnosis of asthma, reactive airway disease. Please correlate clinically. SEE SCANNED PFT RESULTS FOR DETAILS. (The above report was entered in part using voice recognition medical dictation software. Although I have reviewed this report for accuracy, certain words and phrases may not be entered as intended. Please excuse typographical and grammatical errors.) us Schuyler Ibarra MD PFT ORDERABLES Edited Re sult - Final * EXERCISE-6 MIN. WALK (02/27/2025 9:00 AM EDT) Narrative Schuyler Dejesus MD - 02/27/2025 9:00 AM EDT Schuyler Ibarra MD 02/27/2025 9:50 AM - 02/27/2025 6MWT: on Room Air. Dx: dyspnea - pt. walked for 6 minutes, for a distance of 1050 ft (6MWD 320 m). - Baseline SpO2 at rest on room air: 97%. - Significant oxygen desaturation while walking: NO MILD; LOWEST SpO2 95% at 2 min; post-test SpO2 95%. - Dyspnea: highest Mod. Shabbir Dyspnea Scale Score: 7/10. IMPRESSION: Exercise limitation: NO MILD. Required or Qualified for Oxygen Supplementation: NO. us Schuyler Ibarra MD PFT ORDERABLES Edited Re sult - Final * CT CHEST WITHOUT CONTRAST (02/27/2025 8:22 AM EDT) Anatomical Region Laterality Modality Chest Computed Tomogra phy 02/27/2025 8:18 AM EDT Impressions 03/04/2025 10:14 AM EDT IMPRESSION: Multiple indeterminate pulmonary nodules are not significantly changed. Recommend follow-up chest CT in one year. Narrative 03/04/2025 10:14 AM EDT EXAM: CT scan of the chest without contrast. Dose reduction technique used: Automated exposure control and/or adjustment of the mA and/or kV according to patient size and/or use of iterative reconstruction technique. REASON FOR EXAM: Lung nodule follow-up COMPARISON: CT scan dated 02/25/2024 FINDINGS: No acute airspace opacities. No pneumothorax. No pleural effusion. No acute fractures. No definite lymphadenopathy in the chest. 2 to 3 mm solid anterior left upper lobe pulmonary nodule. Tiny nodule in the lingula is suspected be a calcified granuloma. Additional 2 mm solid nodule in the lingula. 3 mm anterior right upper lobe solid pulmonary nodule is not significantly changed. Small nodule along the right major fissure is likely a pleural lymph nodes. Small nodules along the right minor fissure is likely a pleural lymph nodes. 6 mm subpleural right middle lobe solid pulmonary nodule is not significantly changed. 7 mm right lung base solid nodule laterally is not significantly changed. Mild changes of centrilobular emphysema in both lungs. T5 and T6 chronic compression fractures with mild height loss. Coronary atherosclerotic calcifications are present. Remainder unremarkable. Procedure Note Hegg, Eduardo M, MD - 03/04/2025 EXAM: CT scan of the chest without contrast. Dose reduction technique used: Automated exposure control and/oradjustment of the mA and/or kV according to patient size and/or use of iterative reconstruction technique. REASON FOR EXAM: Lung nodule follow-up COMPARISON: CT scan dated 02/25/2024 FINDINGS: No acute airspace opacities. No pneumothorax. No pleural effusion. Noacute fractures. No definite lymphadenopathy in the chest. 2 to 3 mm solid anterior left upper lobe pulmonary nodule. Tiny nodule inthe lingula is suspected be a calcified granuloma. Additional 2 mm solidnodule in the lingula. 3 mm anterior right upper lobe solid pulmonary nodule is not significantly changed. Small nodule along the right major fissure islikely a pleural lymph nodes. Small nodules along the right minor fissure is likelya pleural lymph nodes. 6 mm subpleural right middle lobe solid pulmonarynodule is not significantly changed. 7 mm right lung base solid nodule laterallyis not significantly changed. Mild changes of centrilobular emphysema in both lungs. T5 and T6 chronic compression fractures with mild height loss. Coronary atherosclerotic calcifications are present. Remainder unremarkable. IMPRESSION IMPRESSION: Multiple indeterminate pulmonary nodules are not significantly changed. Recommend follow-up chest CT in one year. us Schuyler Ibarra MD CT ORDERABLES Final Res ult * US AORTA RETROPERITONEAL (02/19/2025 9:12 AM EDT) Anatomical Region Laterality Modality Abdomen, Pelvis, Chest Ultrasoun d 02/19/2025 8:44 AM EDT 02/19/2025 8:41 AM EDT Narrative 02/19/2025 10:13 AM EDT APPROVED REPORT Conclusion Mild proximal aortic dilation that meets criteria for an aneurysm measuring 3.17 cm. Indications Rule Out AAA Risk Factors History of Smoking Aortic Measurements A / P Transverse Prox Aorta 3.17cm 2.61cm Mid Aorta 2.01cm 1.88cm Dist Aorta 1.68cm 1.59cm Rt Common Iliac A. 1.19cm 0.97cm Lt Common Iliac A. 1.11cm 1.07cm Procedure Note Andrea Rivas MD / Michael Fernandez MD - 02/19/2025 APPROVED REPORT Conclusion Mild proximal aortic dilation that meets criteria for an aneurysmmeasuring 3.17 cm. Indications Rule Out AAA Risk Factors History of Smoking Aortic Measurements A / PTransverse Prox Aorta 3.17cm2.61cm Mid Aorta 2.01cm1.88cm Dist Aorta 1.68cm1.59cm Rt Common Iliac A.1.19cm0.97cm Lt Common Iliac A.1.11cm1.07cm Mic Kiran DO US ORDERABLES Final Result * TSH (02/19/2025 8:25 AM EDT) Only the most recent of2 resultswithin the time period is included. TSH 1.700 0.465 - 4.680 uIU/ML [address] Blood 02/19/2025 8:25 AM EDT 02/19/2025 8:26 AM EDT Mic Kiran DO ENDOCRINOLOGY Final Result Performing Organization Address [facility]/State/ZIP Co de Phone Number [address] [address] * URINE PROTEIN/CREA RATIO, RANDOM (01/24/2025 2:53 PM EDT) PROTEIN MG/DL-URINE <5 0 - 12 MG/DL [address] CREATININE, MG/DL, URINE 231.3 MG/DL [address] Comment:NO NORMAL VALUES EST ABLISHED FOR RANDOM SPECIMENS PROTEIN/CREAT RATIO, URINE NOT CALCULATED [address] Comment: REFERENCE RANGES <0.2 NORMAL 0.2-3.5 NON-NEPHROTIC >3.5 NEPHROTIC Urine 01/24/2025 2:53 PM EDT 01/24/2025 2:54 PM EDT Result Sandeep Kiran DO BODY FLUIDS & STOOLS ORDERABLE S Final Result Performing Organization Address [facility] Co de Phone Number [address] [address] * MICROALBUMIN/CREATININE RATIO (01/24/2025 2:53 PM EDT) CREATININE, MG/DL, URINE 226.6 MG/DL [address] Comment:NO NORMAL VALUES EST ABLISHED FOR RANDOM SPECIMENS Microalbumin, Urine, Random 7.1 0.0 - 16.7 mg/L [address] MICROALBUMIN/CRE ATININE RATIO 3.1 1.3 - 30.0 mg MALB/g CREAT [address] Urine 01/24/2025 2:53 PM EDT 01/24/2025 2:54 PM EDT Result Sandeep Kiran DO BODY FLUIDS & STOOLS ORDERABLE S Final Result Performing Organization Address [facility] Co de Phone Number [address] [address] * VITAMIN D (25-HYDROXY,TOTAL) (01/24/2025 8:43 AM EDT) VITAMIN D 25 HYDROXY 39.1 NG/ML [address] Comment: DEFICIENT <20 NG/ML INSUFFICIENT 20-<30 NG/ML SUFFICIENT 30-100 NG/ML POTENTIAL TOXICITY >100 NG/ML Blood 01/24/2025 8:43 AM EDT 01/24/2025 8:44 AM EDT Result Sandeep Kiran DO CHEMISTRY ORDERABLES Final Res ult Performing Organization Address City/[facility]/ZIP Co de Phone Number [place] [phone] [facility] [address] * (ABNORMAL) CBC, EDIF, PLATELET (01/24/2025 8:43 AM EDT) WBC (WHITE BLOOD COUNT) 8.0 3.6 - 11.0 10*3/uL [address] RBC 5.16 4.0 - 6.1 10*6/uL [address] HEMOGLOBIN (HGB) 16.2 14.0 - 18.0 G/DL [address] HEMATOCRIT (HCT) 46.9 42.0 - 52.0 % [address] Mean Cell Volume 90.9 80.0 - 100.[address] Mean Cell HGB 31.4 26.0 - 35.[address] Mean Cell HGB Concentration 34.5 27.0 - 37.0 G/DL [address] RBC Distribution 13.5 11.5 - 14.5 % [address] PLATELET COUNT 275 130 - 400 10*3/uL [address] Mean Platelet Volume 8.4 7.4 - 11.[address] DIFFERENTIAL TYPE AUTO DIFF % ON [address] NEUTROPHILS 51.8 37.0 - 75.0 % [address] LYMPHOCYTE 26.9 20.0 - 55.0 % [address] MONOCYTE % 6.7 0.0 - 10.0 % [address] EOSINOPHIL % 13.6(H) 0.0 - 11.0 % [address] BASOPHIL % 1.0 0.0 - 2.0 % [address] Absolute Neutrophil Count 4.2 1.4 - 6.5 10*3/uL [address] LYMPHOCYTES, ABSOLUTE 2.2 1.2 - 3.4 10*3/uL [address] MONOCYTES, ABSOLUTE 0.5 0.0 - 0.7 10*3/uL [address] ABSOLUTE EOSINOPHIL COUNT 1.1(H) 0.0 - 0.7 10*3/uL [address] ABSOLUTE BASOPHIL COUNT 0.1 0.0 - 0.2 10*3/uL [address] Blood 01/24/2025 8:43 AM EDT 01/24/2025 8:44 AM EDT us Mic Kiran DO HEMATOLOGY ORDERABLES Final Re sult Performing Organization Address [facility]/ZIP Co de Phone Number [address] [address] * URIC ACID (01/24/2025 8:43 AM EDT) URIC ACID 5.2 3.5 - 8.5 MG/DL [address] Blood 01/24/2025 8:43 AM EDT 01/24/2025 8:44 AM EDT us Mic Kiran DO CHEMISTRY ORDERABLES Final Res ult Performing Organization Address [facility]/ZIP Co de Phone Number [address] [address] * HEMOGLOBIN A1C (01/24/2025 8:43 AM EDT) HEMOGLOBIN A1C 5.3 0 - 6 % [address] Comment: NORMAL <5.7% PREDIABETES 5.7-6.4% DIABETES 6.5% OR HIGHER Estimated Average Glucose 105 mg/dL [address] Blood 01/24/2025 8:43 AM EDT 01/24/2025 8:44 AM EDT us Mic Kiran DO HEMATOLOGY ORDERABLES Final Re sult Performing Organization Address [facility]/ZIP Co de Phone Number [address] [address] * (ABNORMAL) LIPID PANEL W CALCULATED LDL (01/24/2025 8:43 AM EDT) CHOLESTEROL 170 MG/DL [address] TRIGLYCERIDE 147 0 - 150 MG/DL [address] HDL CHOLESTEROL 45 26 - 63 MG/DL [address] LDL CHOLESTEROL, CALCULATED 96 <100 MG/DL [address] VLDL Cholesterol, Calculated 29(H) 5 - 25 MG/DL [address] TCHOL/HDL RATIO, MANUAL ENTER 3.[address] Comment: RISK TOTAL/HDL RATIO MEN WOMEN 1/2 AVERAGE 3.43 3.27 AVERAGE 4.97 4.44 2X AVERAGE 9.55 7.05 3X AVERAGE 23.99 11.04 Blood 01/24/2025 8:43 AM EDT 01/24/2025 8:44 AM EDT us Mic Kiran DO CHEMISTRY ORDERABLES Final Res ult Performing Organization Address [facility]/ZIP Co de Phone Number [address] [address] * COMPREHENSIVE METABOLIC PANEL (01/24/2025 8:43 AM EDT) Glucose 93 70 - 100 MG/DL [address] Comment: NORMAL <100 mg/dL PREDIABETES 101-126 mg/dL DIABETES 126 mg/dL or higher BUN 16 7 - 20 MG/DL [address] CREATININE SERUM 1.10 0.70 - 1.20 MG/DL [address] SODIUM 141 137 - 145 MMOL/L [address] Potassium 4.0 3.5 - 5.1 MMOL/L [address] CHLORIDE 105 98 - 107 MMOL/L [address] Comment:Please note: Triglyc eride levels of 600mg/dL or higher may positively bias chloride results by approximately 2.1 mmol CALCIUM 9.3 8.4 - 10.2 MG/DL [address] PROTEIN, TOTAL 7.0 6.3 - 8.2 GM/DL [address] Albumin 4.3 3.5 - 5.0 G/dl [address] BILIRUBIN, TOTAL 0.9 0.2 - 1.3 MG/DL [address] AST 34 17 - 59 IU/L [address] ALKALINE PHOSPHATASE 100 38 - 126 IU/L [address] CARBON DIOXIDE (CO2) 27 22 - 30 MMOL/L [address] A/G Ratio 1.[address] ALT 25 <50 IU/L [address] ESTIMATED GFR, NON AMER 72 ml/min/1. 73sq.m [address] ESTIMATED GFR, 87 ml/min/1. 73sq[address]m [address] GFR COMMENT Average GFR for 60-69 years old = 85. [address] Comment: Chronic Kidney disease, GFR = <60. Kidney failure, GFR = <15. The GFR estimate is not adjusted for extreme body surface area or acute process, nor has it been validated for women or ethnic groups other than and . Blood 01/24/2025 8:43 AM EDT 01/24/2025 8:44 AM EDT us Mic Kiarn DO CHEMISTRY ORDERABLES Final Res ult [place] [id number] [facility] [address] [place] [address] * MONITOR REPORTS (SCANNED) (01/05/2025 11:26 AM EDT) us Schuyler Ibarra MD ECG ORDERABLES Final Res ult * HI DRAIN/INJECT LARGE JOINT/BURSA PERFORMABLE (01/02/2025 9:40 AM EDT) Anatomical Region Laterality Modality Other Narrative 01/02/2025 9:40 AM EDT Harley Rivera, ATC 01/17/2025 4:06 PM LARGE JOINT/BURSA INJECTION AND/OR ASPIRATION: R subacromial bursa Date/Time: 01/02/2025 9:40 AM Performed by: Michael Davidson MD Authorized by: Michael Davidson MD Supporting Documentation Indications: pain Procedure Details: Location: shoulder - R subacromial bursa Local Anesthetic: ethyl chloride (cold spray) Needle size: 22 G Approach: posterior Medication Verification: I have personally verified and performed the final check of the medication(s) used in this procedure prior to administration. The following items were included during the verification process for medication(s) administered: drug name, strength, volume, expiration, physical integrity and appearance of the medication(s). Medications administered: 40 mg methylPREDNISolone acetate 40 MG/ML; 2 mL BUPivacaine 0.25 %; 4 mL Lidocaine 10 mg/mL Patient tolerance: patient tolerated the procedure well with no immediate complications Consent: Consent was obtained prior to the procedure after discussion of the risks, benefits and alternatives, and expected outcomes were discussed with the patient. The possibilities of reaction to medication, bleeding, infection, the need for additional procedures, failure to diagnosis a condition, and creating a complication requiring operation were discussed with the patient. The patient concurred with the proposed plan, giving consent. Preparation: Patient was prepped in the usual sterile fashion. The patient was prepped with alcohol. us Michael Davidson MD BEDSIDE PROCEDURES Final Resul t * HI ECHOCARDIOGRAM W/O 3D (12/29/2024 7:47 AM EDT) Anatomical Region Laterality Modality Ultrasound 12/29/2024 7:48 AM EDT 12/29/2024 7:32 AM EDT Narrative 01/02/2025 12:06 AM EDT APPROVED REPORT Other Information Study Quality: Good Conclusion Normal LV and RV size and fuction, estimated EF 60%. Mild valvular disease. Estimated RVSP 36 mm/Hg. Left Ventricle The left ventricle is normal. Left ventricular systolic function is normal. The posterior wall thickness is mildly increased. The septal thickness is mildly increased. There is normal LV segmental wall motion. Mild diastolic dysfunction is present (impaired relaxation pattern). LVEF is 60%. Right Ventricle The right ventricle size is normal. The right ventricular systolic function is normal. Atria The left atrium is normal. The right atrium size is normal. Aortic Valve The aortic valve is normal in structure. There is no aortic valvular stenosis. Trace aortic regurgitation is present. Mitral Valve The mitral valve is normal in structure. There is trace mitral valve regurgitation noted. Tricuspid Valve The tricuspid valve is normal in structure. There is trace tricuspid valve regurgitation noted. Pulmonic Valve Pulmonic valve is not well visualized. There is no pulmonic valvular regurgitation. Great Vessels The aortic root size is normal. The ascending aorta size is normal. Pericardium There is no pericardial effusion. EXAM: Comprehensive 2D, Doppler, and color-flow Echocardiogram Imaging system used: [employer] 2D Dimensions IVSd 1.1 cm M: 0.6-1.0 LVEF (Moore's) 58.55 % M: 52 - 72 PWd 1.1 cm M: 0.6 - 1.0 EF AP4-a2DQ 60.37 % LVDd 4.9 cm M: 4.2 - 5.8 EF AP2-a2DQ 55.93 % LVDs 2.98 cm M: 2.5 - 4.0 EF BP-a2DQ 58.55 % Aortic Root 3.50 cm M: 3.1 - 3.7 LVESV 42 mL Aortic Root Index 1.8 cm/m2 LVEDV 100.21 mL M: 62 - 150 Ascending Aorta 3.34 cm M: 2.6 - 3.4 LV Volume Index 51.39 mL/m2 M: 34 - 74 Ascending Aorta Index: 1.7 cm/m2 LA Volume 37.3 mL Left Atrium 3.76 cm M: 3.0 - 4.0 LA Volume Index 19.13 mL/m2 (M/F) 16-34 LVOT 2.51 cm (M/F) 1.5-2.5 RV Major 3.20 cm IVC 2.4 cm RV Minor 7.41 cm RVIDd 3.13 cm (M/F) 2.5-4.1 Right Atrium 5.0 cm (M/F) 2.9-4.5 LV Diastology E/A Ratio 0.7 Septal E' 0.04 (>=.07 m/s) LAT E' 0.07 (>=.10 m/s) Aortic Valve LVOT Max 0.68 (0.7-1.1 m/s) AR Decel [place] 0.90 m/s2 LVOT VTI 15.99 cm LVOT Peak GR 1.87 mmHg LVOT Mean GR 0.93 mmHg AV DI 0.64 (>0.25) AoV Peak Mario Alberto. 1.09 (0.5-1.3 m/s) AI PHT 1041.88 ms AV Vmean 0.73 m/s AO Peak GR. 4.80 mmHg AO Mean GR. 2.47 (<5 mmHg) AO VTI 25.0 (18-25 cm) MIKEL (VTI) 3.16 (2.5-4.5 cm2) AR Peak Gr. 35.53 mmHg Mitral Valve MV E Max Mario Alberto. 0.4 (0.4-1.3 m/s) MV A Velocity 0.61 (0.4-1.3 m/s) E/A Ratio 0.72 MV PHT 66.05 ms MVA PHT 3.33 cm2 MV Dec [place] 231.32 cm/s2 MV Decel. Time 221.21 (160-240 ms) Pulmonary Valve HI End VMAX 1.8 m/s Tricuspid Valve TR P. Velocity 2.85 m/s RAP Estimate 3 mmHg RVSP 35.53 mmHg TR maxPG 32.53 mmHg Procedure Note Michael Fernandez MD - 01/02/2025 APPROVED REPORT Other Information Study Quality: Good Conclusion Normal LV and RV size and fuction, estimated EF 60%. Mild valvular disease. Estimated RVSP 36 mm/Hg. Left Ventricle The left ventricle is normal. Left ventricular systolic function isnormal. The posterior wall thickness is mildly increased. The septalthickness is mildly increased. There is normal LV segmental wall motion.Mild diastolic dysfunction is present (impaired relaxation pattern). LVEF is 60%. Right Ventricle The right ventricle size is normal. The right ventricular systolicfunction is normal. Atria The left atrium is normal. The right atrium size is normal. Aortic Valve The aortic valve is normal in structure. There is no aortic valvularstenosis. Trace aortic regurgitation is present. Mitral Valve The mitral valve is normal in structure. There is trace mitral valveregurgitation noted. Tricuspid Valve The tricuspid valve is normal in structure. There is trace tricuspid valveregurgitation noted. Pulmonic Valve Pulmonic valve is not well visualized. There is no pulmonic valvularregurgitation. Great Vessels The aortic root size is normal. The ascending aorta size is normal. Pericardium There is no pericardial effusion. EXAM: Comprehensive 2D, Doppler, and color-flow Echocardiogram Imaging system used: [employer] 2[employer] Dim[employer] IVSd 1.1 cm M: 0.6-1.0LVEF (Moore's)58.55 % M: 52 - 72 PWd 1.1 cm M: 0.6 - 1.0EF AP4-a2DQ60.37 % LVDd 4.9 cm M: 4.2 - 5.8EF AP2-a2DQ55.93 % LVDs 2.98 cm M: 2.5 - 4.0EF BP-a2DQ58.55 % Aortic Root 3.50 cm M: 3.1 - 3.6MYBXR86 mL Aortic Root Index1.8 cm/h2XHWAG311.21 mL M: 62 - 150 Ascending Aorta 3.34 cm M: 2.6 - 3.4LV Volume Index51.39 mL/m2 M: 34 -74 Ascending Aorta Index: 1.7 cm/m2LA Jwdpqy37.3 mL Left Atrium 3.76 cm M: 3.0 - 4.0LA Volume Index19.13 mL/m2 (M/F)16-34 LVOT2.51 cm (M/F) 1.5-2.5RV Major 3.20 cm IVC2.4 cmRV Minor7.41 cm RVIDd3.13 cm (M/F) 2.5-4.1 Right Atrium 5.0 cm (M/F) 2.9-4.5 LV Diastology E/A Ratio 0.7Septal E'0.04 (>=.07 m/s) LAT E'0.07 (>=.10 m/s) Aortic Valve LVOT Max0.68 (0.7-1.1 m/s)AR Decel Slope0.90 m/s2 LVOT VTI15.99 cmLVOT Peak GR1.87 mmHg LVOT Mean GR0.93 mmHgAV DI0.64 (>0.25) AoV Peak Mario Alberto.1.09 (0.5-1.3 m/s)AI EHN9819.88 ms AV Vmean 0.73 m/[place] GR.4.80 mmHg AO Mean GR.2.47 (<5 mmHg)AO VTI25.0 (18-25 cm) MIKEL (VTI)3.16 (2.5-4.5 cm2)AR Peak Gr.35.53 mmHg Mitral Valve MV E Max Mario Alberto.0.4 (0.4-1.3 m/s)MV A Velocity0.61 (0.4-1.3 m/s) E/A Ratio0.72MV PHT66.05 ms MVA PHT3.33 cm2MV Dec [place] 231.32 cm/s2 MV Decel. Kbff769.21 (160-240 ms) Pulmonary Valve HI End VMAX1.8 m/s Tricuspid Valve TR P. Velocity2.85 m/sRAP Estimate3 mmHg RVSP35.53 mmHgTR maxPG 32.53 mmHg us Schuyler Ibarra MD ECHO ORDERABLES Final Res ult * PSA, SCREENING (06/08/2024 11:26 AM EDT) PROSTATE SPECIFIC ANTIGEN 1.020 0 - 4 NG/ML [facility] - [address] - [place] Comment: OBTAIN BASELINE BETWEEN AGES OF 45-75 LESS THAN 1.0 ng/mL REPEAT TESTING AT 2-4 YEARS 1.0-3.0 ng/mL REPEAT TESTING AT 1-2 YEARS GREATER THAN 3.0 ng/mL REPEAT PSA,BETTY, AND WORKUP FOR BENIGN DISEASE AGE GREATER THAN 75, PSA LESS THAN 3 ng/mL REPEAT TESTING IN 1-4 YEARS Patient results determined by testing on the [employer] Vitros 7600 analyzer by immunometric method. This assay may not be comparable using a different financial data analyst or method. Blood 06/08/2024 11:2 6 AM EDT 06/08/2024 11:27 AM EDT Mic Kiran DO IMMUNOLOGY ORDERABLES Final Re sult [facility] - [address] [place] [address] [place] [address] * SCREENING COLONOSCOPY (05/14/2022 9:08 AM EDT) Anatomical Region Laterality Modality Other 05/14/2022 8:48 AM EDT Narrative 05/14/2022 9:11 AM EDT [facility] Gastroenterology Patient Name: Raheel Nugent Procedure Date: 05/14/2022 8:48 AM Date of : 1960 Admit Type: Outpatient Age: 62 Room: Procedure Room #2 Gender: Male Note Status: Finalized Attending MD: Sumanth Dejesus Jr., DO Instrument Name: [id number] Procedure: Colonoscopy Attending Participation: I personally performed the entire procedure. Indications: Screening for colorectal malignant neoplasm Providers: Sumanth Dejesus Jr., DO Referring MD: Sumanth Dejesus Jr., DO, Harold M. Brown, DO Complications: No immediate complications. Estimated Blood Loss: Estimated blood loss: none. Medicines: See the Anesthesia note for documentation of the administered medications Procedure: Pre-Anesthesia Assessment: - Prior to the procedure, a History and Physical was performed, and patient medications and allergies were reviewed. The patient is competent. The risks and benefits of the procedure and the sedation options and risks were discussed with the patient. All questions were answered and informed consent was obtained. Patient identification and proposed procedure were verified by the physician in the pre-procedure area. Mental Status Examination: alert and oriented. Airway Examination: normal oropharyngeal airway and neck mobility. Respiratory Examination: clear to auscultation. CV Examination: normal. Prophylactic Antibiotics: The patient does not require prophylactic antibiotics. Prior Anticoagulants: The patient has taken no anticoagulant or antiplatelet agents. ASA Grade Assessment: II - A patient with mild systemic disease. After reviewing the risks and benefits, the patient was deemed in satisfactory condition to undergo the procedure. The anesthesia plan was to use moderate sedation / analgesia (conscious sedation). Immediately prior to administration of medications, the patient was re-assessed for adequacy to receive sedatives. The heart rate, respiratory rate, oxygen saturations, blood pressure, adequacy of pulmonary ventilation, and response to care were monitored throughout the procedure. The physical status of the patient was re-assessed after the procedure. After I obtained informed consent, the scope was passed under direct vision. Throughout the procedure, the patient's blood pressure, pulse, and oxygen saturations were monitored continuously. CO2 was used. The loaner scope was introduced through the anus and advanced to the cecum, identified by the appendiceal orifice, ileocecal valve and palpation. The colonoscopy was performed without difficulty. The patient tolerated the procedure well. The quality of the bowel preparation was good. The ileocecal valve, appendiceal orifice, and rectum were photographed. Findings: The perianal and digital rectal examinations were normal. Multiple small-mouthed diverticula were found in the sigmoid colon, descending colon and hepatic flexure. Impression: - Diverticulosis in the sigmoid colon, in the descending colon and at the hepatic flexure. - No specimens collected. Recommendation: - Discharge patient to home (ambulatory). - Resume previous diet. - Continue present medications. - Repeat colonoscopy in 7 years for surveillance. Procedure Code(s): --- Professional --- 24480, Colonoscopy, flexible; diagnostic, including collection of specimen(s) by brushing or washing, when performed (separate procedure) Diagnosis Code(s): --- Professional --- Z12.11, Encounter for screening for malignant neoplasm of colon K57.30, Diverticulosis of large intestine without perforation or abscess without bleeding CPT copyright 2020 [employer]. All rights reserved. The codes documented in this report are preliminary and upon sounding device operator review may be revised to meet current compliance requirements. Dr. Sumanth Dejesus Jr, D.O. Sumanth Dejesus Jr., DO 05/14/2022 9:10:53 AM This report has been signed electronically. Number of Addenda: 0 Note Initiated On: 05/14/2022 8:48 AM us Sumanth Dejesus Jr., DO GI/BRONCH PROCEDURE ORD ERABLES Final Result * (ABNORMAL) HEPATITIS A, B, C (12/18/2021 8:01 AM EDT) Hep A AB (IGG + IGM) POSITIVE(A) NEGATIVE [facility] - [address] - [facility] Comment:Specimen is positive for HAV, sent to reference lab for HAVAb, IgM. Positive indicates a reactive sample and the presence of HAV Ab, individual has been previously infected or is presumed to be immune to HAV infection. Hep B Surf AG NEGATIVE NEGATIVE [facility] - [address] - [place] HEP B CORE AB,TOTAL(IGG+IGM) NEGATIVE NEGATIVE [facility] - [address] - [place] Hep B Surf AB NEGATIVE(A) POSITIVE [facility] - [address] - [facility] Comment: Clinical Interpretation of Immune Status Negative: patient is considered to be not immune to infection with HBV Intermediate: unable to determine if anti-HBs is present at levels consistent with immunity Positive: anti-HBs detected, patient is considered to be immune to infection with HBV HEP C AB, Donor NEGATIVE NEGATIVE [facility] - [address] [facility] 12/18/2021 8:01 AM EDT 12/18/2021 8:02 AM EDT us Mic Kiran DO IMMUNOLOGY ORDERABLES Final Re sult [facility] - [address] - [facility] [address] [place] [address] from Last 3 Months or Most Recently Relevant to Health Maintenance Insurance MEDICAID MEDICARE A AND B MEDICARE UHC HMO MEDICAID [facility] [place] [address] [id number] Care Teams Machine Straw Hat Presser Relationship Specialty Start Date End Date Mic Kiran DO [address] [address] PCP - General Family Medicine 12/16/21
--- OUTSIDE RECORDS SUMMARY | 2025-03-22 14:51 | XMS_ITS | Clinical Summary ---
Author Organization [employer] s tem Address [id number] [address] [place] [address] Care Team Providers Care Plate Cutter Name Role Phone Pablo Kiran Primary Care Provider [phone] Allergies Active Allergy Reactions Criticality Noted Date Comments Acetaminophen Medium 01/11/2023 Has elevated LFT's Nsaids (Non-Steroidal Anti-Inflammatory Drug) Medium 12/18/2021 Has CKD-2 Penicillins Rash Medium 07/12/2024 Medications albuterol (PROVENTIL HFA;VENTOLIN HFA) 90 mcg/actuation inhaler Inhale 2 puffs every 6 (six) hours as needed. 4 Active cetirizine (ZyrTEC) 10 mg tablet Take 1 tablet (10 mg total) by mouth in the morning. Active cholecalciferol , vitamin D3, 2,000 units tablet Take 1 tablet (2,000 Units total) by mouth in the morning. Active ARTHRITIS PAIN, DICLOFENAC, 1 % gel Apply 2 g topically as needed in the morning and 2 g as needed in the evening. 4 Active montelukast (SINGULAIR) 10 mg tablet Take 1 tablet (10 mg total) by mouth nightly. 4 Active omeprazole (PriLOSEC) 20 mg capsule Take 1 capsule (20 mg total) by mouth every morning before breakfast. 4 Active oxyCODONE-aceta minophen (PERCOCET) 5-325 mg per tablet Take 1-2 tablets by mouth every 4 (four) hours as needed for pain. 4 Active sildenafiL (VIAGRA) 100 mg tablet Take 0.5-1 tablets (50-100 mg total) by mouth as needed. 4 Active tamsulosin (FLOMAX) 0.4 mg capsule Take 2 capsules (0.8 mg total) by mouth nightly. 4 Active atorvastatin (LIPITOR) 40 mg tablet Take 1 tablet (40 mg total) by mouth in the morning. 30 tablet Active Active Problems Problem Noted Date Diagnosed Date ASHD (arteriosclerotic heart disease) 08/15/2024 Elevated troponin 07/14/2024 Pulmonary emboli 07/13/2024 Other acute pulmonary embolism without acute cor pulmonale 07/12/2024 Benign prostatic hyperplasia without lower urinary tract symptoms 04/12/2023 Pulmonary emphysema 01/11/[address] 04/16/2022 CKD (chronic kidney disease) stage 2, GFR 60-89 ml/min 12/18/2021 Hyperlipidemia LDL goal <70 12/18/2021 Idiopathic chronic gout without tophus Gastroesophageal reflux disease without esophagi tis 12/16/2021 Asymptomatic varicose veins of right lower extre mity 12/16/2021 Resolved Problems Problem Noted Date Diagnosed Date Resolved Date Type 2 diabetes mellitus wit h stage 2 chronic kidney disease, without long-term current use of insulin [place] 08/16/2024 01/29/2025 Encounters Date Type Department Care Team Description 01/29/2025 10:45 AM EDT Office Visit [facility] [place] [address] Trudy Asencio DO Bilateral carotid artery stenosis (Primary Dx) 01/29/2025 Travel from Last 3 Months Immunizations Immunization Administration Dates Next Due Influenza, Injectable, quadrivalent (PF) 022 Td, Unspecified 12/19/2015 Social History Tobacco Use Types Packs/Day Years Used Date Smoking Tobacco: Former Cigarettes Smokeless Tobacco: Never Tobacco Cessation:Counseling Given: Not Answered Alcohol Use Standard Drinks/Week Comments Yes 0 (1 standard drink = 0.6 oz pur e alcohol) [facility] Utilities Answer Date Recorded In the past 12 months has [place], gas, oil, or water [employer] threatened to shut off services in your [...] got money to buy more. Never True 08/01/2024 Within the past 12 months th e food we bought just didn't last and we didn't have money to get more. Never True 08/01/2024 Sex and Gender Information Value Date Recorded Sex Assigned at Not on file Legal Sex Male 9:06 PM EDT Gender Identity Not on file Sexual Orientation Not on file Last Filed Vital Signs Vital Sign Reading Time Taken Comments Blood Pressure 121/77 01/29/2025 11:18 AM EDT Pulse 58 01/29/2025 11:18 AM EDT Temperature 36.5 C (97.7 F) 07/14/2024 12:09 PM EDT Respiratory Rate 14 07/14/2024 2:01 PM EDT Oxygen Saturation 97% 07/14/2024 2:01 PM EDT Inhaled Oxygen Concentration - - Weight 81.6 kg (180 lb) 01/29/2025 11:18 AM EDT Height 172.7 cm (5' 8 ) 08/01/2024 11:09 AM EST Body Mass Index 27.37 08/01/2024 11:09 AM EST Plan of Treatment Upcoming Encounters Date Type Department Care Team (Late st Contact Info) Description 04/30/2025 9:30 AM EDT Appointment [facility] - Vascular [address] [place] [address] Trudy Asencio, DO [address] [place] [address] 05/07/2025 9:00 AM EDT Office Visit [facility] [address] [place] [address] Trudy Asencio, DO [address] [place] [address] Health Maintenance Due Date Last Done Comments Adult BMI Follow Up Plan 01/29/1978 Zoster (Shingles) Vaccine (1 of 2) 01/29/2010 DTaP,Tdap and Td Vaccines (1 - Tdap) 12/20/201511/20 COVID-19 Vaccine (2 - season) 05/21/202405/2021 Abdominal Aortic Aneurysm (AAA) Screen 01/29/2025 Fall Risk Screening 01/29/2025 Influenza Vaccine 05/21/2025 08/15/2024, 07/14/2022 Depression Screening 07/13/2025 07/13/2024 Adult BMI Screening 01/29/2026 01/29/2025 Tobacco Screening 02/08/2026 02/08/2025 Medical Devices Not on file Insurance MEDICARE MEDICAID [place] Advance Directives * Full Code (Latest Code Status on File) Date Activated Date Inactivated Comments 07/13/2024 5:07 PM 07/14/2024 4:48 PM * Full Code Date Activated Date Inactivated Comments 07/12/2024 10:57 PM 07/13/2024 4:39 PM Care Teams Plate Cutter Relationship Specialty Start Date End Date Pablo Kiran PA [address] [address] PCP - General Unknown Physician Specialty 07/12/24
--- OUTSIDE RECORDS SUMMARY | 2025-03-22 14:51 | XMS_ITS | Encounter Summary ---
Author Organization [employer] s tem Address [id number] [address] [place] [address] Care Team Providers Care Cheese Wrapper Name Role Phone Pablo Kiran Primary Care Provider [phone] Reason for Visit * Reason Onset Date Comments elevated troponin 07/13/2024 Encounter Details Date Type Department Care Team (Late st Contact Info) Description 07/13/2024 Telephone [employer] [facility] [address] [place] [address] Kimberley Parra elevated troponin Social History Tobacco Use Types Packs/Day Years Used Date Smoking Tobacco: Never Smokeless Tobacco: Never Alcohol Use Standard Drinks/Week Comments Never 0 (1 standard drink = 0.6 oz pur e alcohol) [facility] Utilities Answer Date Recorded In the past 12 months has e [employer], gas, oil, or water company threatened to shut off services in your [...] on file documented as of this encounter Functional Status * Audit-C Score Answer Date of Assessment Author 0 07/13/2024 6:43 PM EDT Ra isabella Guerra RN * Question Answer Date of Assessment Author Q1: How often do you have a drink containing alcohol? Never 07/13/2024 6:43 PM EDT María Guerra RN Q2: How many drinks containing alcohol do you have on a typical day when you are drinking? Patient does not drink 07/13/2024 6:43 PM EDT María Guerra RN Q3: How often do you have six or more drinks on one occasion? Never 07/13/2024 6:43 PM EDT María Guerra RN * Question Answer Date of Assessment Author Functional Status Independent 07/13/2024 6:44 PM EDT María Guerra RN documented as of this encounter Miscellaneous Notes * Telephone Encounter - Kimberley Parra - 07/13/2024 5:51 AM EDT [phone] Access Cristy re elevated troponin * Telephone Encounter - Kimberley Parra - 07/13/2024 5:51 AM EDT Secure chat sent documented in this encounter Plan of Treatment Upcoming Encounters Date Type Department Care Team (Late st Contact Info) Description 04/30/2025 9:30 AM EDT Appointment [facility] - Vascular [address] [place] [address] Trudy Asencio, DO [address] [facility] [address] [place] [address] 05/07/2025 9:00 AM EDT Office Visit [facility] [address] [place] [address] Trudy Asencio, DO [address] [facility] [address] [place] [address] documented as of this encounter Visit Diagnoses Not on filedocumented in this encounter Additional Health Concerns Assessment Noted Time PHQ-9 Depression Total Score: 0 07/13/20 6:43 PM EDT documented as of this encounter Care Teams Cheese Wrapper Relationship Specialty Start Date End Date Pablo Kiran PA 600 [facility] [address] [place] [address] PCP - General Unknown Physician Specialty 07/12/24 documented as of this encounter
--- OUTSIDE RECORDS SUMMARY | 2025-03-22 14:51 | XMS_ITS | Encounter Summary ---
Author Organization [facility] Address [address] [place] [address] Care Team Providers Care Professor Of Anthropology Name Role Phone Mic Kiran Primary Care Provider [phone] Encounter Details Date Type Department Care Team (Late st Contact Info) Description 01/08/2025 Results Follow-Up [facility] Pulmonary Disease [facility] [address] [place] [address] Schuyler Dejesus MD [address] [place] [id number] MONITOR REPORTS (SCANNED) Social History Tobacco Use Types Packs/Day Years Used Date Smoking Tobacco: Former Cigarettes 2 26 0 03/20/1978 - 03/20/2004 Smokeless Tobacco: Never Alcohol Use Standard Drinks/Week Comments Not Currently [...] as of this encounter Miscellaneous Notes * Result Encounter Note - Schuyler Ibarra MD - 01/08/2025 2:34 PM EDT - 01/06/25 Overnight Pulse Oximetry on Room Air reviewed: significant nocturnal hypoxemia: MILD; with time with SpO2 less than 88% of 3.4 minutes, minimum SpO2 83%, average low SpO2 89%. ??Qualifies for home O2 ??per usual insurance, Medicare criteria: YES. --- Needs home O2 2LPM/NC during sleep; ordered Will discuss details further during next follow-up visit. (To consider Sleep study) STAFF pls inform pt, arrange O2 DME; thanks. documented in this encounter Plan of Treatment Upcoming Encounters Date Type Department Care Team (Late st Contact Info) Description 05/02/2025 9:30 AM EDT Office Visit [facility] Family Medicine [address] [facility] [address] [place] [address] Mic Kiran DO 600 [facility] [address] [place] [address] 06/07/2025 8:00 AM EDT Office Visit [facility] Pulmonary Disease [facility] [address] [facility] [address] [place] [address] Michael Boyce, SHERI [address] [place] [address] 07/09/2025 8:20 AM EDT Office Visit [facility] Orthopedics [address] [place] [address] Michael Davidson MD [address] [facility] [place] [address] 08/06/2025 9:30 AM EST Office Visit [facility] Optometry [place] [address] [place] [address] Alin Donato W, OD [address] [place] [facility] [place] [address] documented as of this encounter Goals Goal Patient Goal Type Associated Problems [...] goals suggested by surgical protocols if applicable. documented as of this encounter Visit Diagnoses Diagnosis Chronic obstructive pulmonary disease, unspecified COPD type- Primary Reactive airway disease without complication, unspecified asthma severity, unspecified whether persistent Chronic respiratory failure with hypoxia Chronic respiratory failure documented in this encounter Additional Health Concerns Assessment Noted Time A fall risk assessment has been complete d for the patient 12/05/2024 2:41 PM EDT documented as of this encounter Care Teams Professor Of Anthropology Relationship Specialty Start Date End Date Mic Kiran DO [address] [address] PCP - General Family Medicine 12/16/21 documented as of this encounter
--- OUTSIDE RECORDS SUMMARY | 2025-03-22 14:51 | XMS_ITS | Clinical Summary ---
Author Organization [facility] Address [address] [place] [address] Care Team Providers Care Assessment Manager Name Role Phone Mic Kiran DO Primary Care Provider [phone] Rainer Swartz MD Unavailable Allergies Active Allergy Reactions Criticality Noted Date Comments Penicillin G Rash Low 10/09/2022 Medications albuterol 90 mcg/actuation inhaler Inhale 2 (two) puffs every 6 (six) hours as needed for wheezing . Active calcium-vitamin D 250 mg-2.5 mcg (100 unit) per tablet Take 1 (one) tablet by mouth daily . Active diclofenac sodium 1% (VOLTAREN) 1 % Gel Apply 2 (two) g topically 4 (four) times a day as needed for pain . Active fluticasone propionate (FLONASE) 50 mcg/actuation nasal spray Instill 2 (two) sprays into each nostril daily . Active montelukast (SINGULAIR) 10 mg tablet Take 1 (one) tablet (10 mg total) by mouth nightly . Active omeprazole (PRILOSEC) 20 MG capsule Take 1 (one) capsule (20 mg total) by mouth daily . Active tamsulosin (FLOMAX) 0.4 mg capsule Take 1 (one) capsule (0.4 mg total) by mouth daily . Active multivitamin (THERAGRAN) per tablet Take 1 (one) tablet by mouth daily . Active levothyroxine (SYNTHROID, LEVOTHROID) 50 MCG tablet Take 1 (one) tablet (50 mcg total) by mouth once daily . Active Active Problems No known active problems Encounters Date Type Department Care Team Description 03/02/2025 8:00 AM EDT Office Visit [facility] Heart & Vascular Physicians [address] [place] [address] Mic Kiran DO Kohler, Kaleb, MD Aortic aneurysm without rupture, unspecified portion of aorta (HCC) 03/02/[address] [facility] [address] [place] [address] [place] [address] Deja Rossi RN AAA (abdominal aortic aneurysm) (Primary Dx); Aortic aneurysm without rupture, unspecified portion of aorta (HCC); AAA (abdominal aortic aneurysm) without rupture; Aneurysm of the descending thoracic aorta, without rupture (HCC) 03/02/2025 Travel 02/21/2025 10:48 AM EDT - 02/21/2025 11:59 PM EDT Hospital Encounter [facility] Radiology [facility] [address] [place] [address] System, Provider Not In Discharge Disposition: Home 02/21/2025 10:48 AM EDT - 02/21/2025 11:59 PM EDT Hospital Encounter [facility] [address] [place] [address] System, Provider Not In Discharge Disposition: Home 02/20/[address] [facility] [address] [place] [address] [place] [address] Mic Kiran DO Aortic aneurysm without rupture, unspecified portion of aorta (HCC) (Primary Dx) 02/08/[address] [facility], Nose and Throat Physicians [address] [place] [address] [place] [address] Rebekah Jimenez MA Recurrent vertigo (Primary Dx) from Last 3 Months Family History Relation Status Comments Father Mother Social History Tobacco Use Types Packs/Day Years Used Date Smoking Tobacco: Former Cigarettes Q uit: 2004 Smokeless Tobacco: Never Alcohol Use Standard Drinks/Week Comments Yes 0 (1 standard drink = 0.6 oz pur e alcohol) rare Sex and Gender Information Value Date Recorded Sex Assigned at Not on file Legal Sex Male 3:21 PM EDT Gender Identity Not on file Sexual Orientation Not on file Last Filed Vital Signs Vital Sign Reading Time Taken Comments Blood Pressure 119/70 03/02/2025 8:15 AM EDT Pulse 56 03/02/2025 8:15 AM EDT Temperature 36.4 C (97.5 F) 10/09/2022 2:41 PM EST Respiratory Rate 15 10/09/2022 3:27 PM EST Oxygen Saturation 97% 10/09/2022 5:34 PM EST Inhaled Oxygen Concentration - - Weight 82.6 kg (182 lb) 03/02/2025 7:56 AM EDT Height 172.7 cm (5' 8 ) 03/02/2025 7:56 AM EDT Body Mass Index 27.67 03/02/2025 7:56 AM EDT Plan of Treatment Upcoming Encounters Date Type Department Care Team (Late st Contact Info) Description 04/24/2025 9:30 AM EDT Office Visit [facility] [address] [place] [address] [place] [address] María Hi CNP [address] [address] 03/08/2026 8:00 AM EDT Appointment [facility] Phys[facility] [address] [place] [address] 3rd [place] [address] Rainer Swartz MD [address] [place] [address] 03/08/2026 9:00 AM EDT Office Visit [facility] Phys[facility] 335 [facility] 3rd [place] [phone] Rainer Swartz MD [address] [place] [address] Health Maintenance Due Date Last Done Comments Abdominal Aortic Ultrasound 1960 CT Colonography 1960 Colonoscopy 1960 Colorectal Cancer Screening/Monitoring 1960 Fecal DNA 1960 Fecal occult blood test (FOBT,FIT) 1960 PSA Level 1960 Tetanus: Every 10yrs 1960 Medicare Wellness Visit 01/29/1963 Diabetic Eye Exam 01/29/1970 Diabetic Foot Exam 01/29/1970 Urine (micro)albumin/creatin ine ratio - Diabetes 01/29/1970 Depression Screening/Follow- Up (PHQ-2/9) 1972 HIV Screening 01/29/1975 Hepatitis C Screening 01/29/1978 Pneumococcal Vaccine: Age 50 + (1 of 2 - PCV) 01/29/1979 Flexible sigmoidoscopy 01/29/2010 Zoster Vaccines (1 of 2) 01/29/2010 Respiratory Syncytial Virus Immunization: Risk, 60-74 Risk, or 75+ (1 - Risk 60-74 years 1-dose series) 2020 eGFR Diabetes 10/09/2023 10/09/2022 COVID-19 Vaccine (2 - 2023-2 5 season) 2024 12/27/2020 Falls Risk Assessment 01/29/2025 Influenza Vaccine (#1) 2025 08/15/2024, 2021 A1C 07/27/2025 01/24/2025, 05/0 03/2025, 08/16/2024, Additional history exists Procedures Procedure Name Priority Date/Time Associated Diagnosis Comments CT COMPARISON IMPORT Routine 02/21/2025 10:53 AM EDT US COMPARISON IMPORT Routine 02/21/2025 10:53 AM EDT BASIC METABOLIC PANEL STAT 10/09/2022 2:57 PM EST from Last 3 Months or Most Recently Relevant to Health Maintenance Results * CT Comparison Import (02/21/2025 10:53 AM EDT) Narrative GE RIS - 02/21/2025 10:53 AM EDT This order has been auto-finalized and does not contain a result. us Provider Not In System IMG NON REPORTABLES Final Result GE RIS * US Comparison Import (02/21/2025 10:53 AM EDT) Narrative JOSE GRANT - 02/21/2025 10:53 AM EDT This order has been auto-finalized and does not contain a result. us Provider Not In System IMG NON REPORTABLES Final Result JOSE GRANT * (ABNORMAL) BMP (10/09/2022 2:57 PM EST) Sodium 138 135 - 145 mmol/L 10/09/2022 3:39 PM EST LAB Potassium 4.2 3.5 - 5.1 mmol/L 10/09/2022 3:39 PM EST LAB Chloride 106 98 - 108 mmol/L 10/09/2022 3:39 PM EST LAB Bicarbonate 26 21 - 32 mmol/L 10/09/2022 3:39 PM EST LAB Anion Gap 10 10 - 20 mmol/L 10/09/2022 3:39 PM EST LAB Glucose 129(H) 65 - 99 mg/dL 10/09/2022 3:39 PM EST LAB BUN 14 8 - 25 mg/dL 10/09/2022 3:39 PM EST LAB Creatinine 1.10 0.80 - 1.30 mg/dL 10/09/2022 3:39 PM EST LAB eGFR 76 >=60 mL/min/1.7 3 m2 10/09/2022 3:39 PM EST LAB Comment:Estimated GFR was ca lculated using the 2020 CKD-EPI creatinine equation. BUN/Creatinine Ratio 12.7 10.0 - 20.0 10/09/2022 3:39 PM EST LAB Calcium 9.6 8.4 - 10.2 mg/dL 10/09/2022 3:39 PM EST LAB Blood BLOOD SPECIMEN / Unknown Venipuncture / Unknown 10/09/2022 2:57 PM EST 10/09/2022 3:02 PM EST Narrative LAB - 10/09/2022 3:[address] [facility] Laboratory Services has implemented the eGFR calculation approach that does not have a coefficient for race that conforms to the NKF-ASN Task Force Recommendations. us Gee Crews DO LAB BLOOD ORDERABLES Final Res ult LAB [address] [place] [address] from Last 3 Months or Most Recently Relevant to Health Maintenance Insurance MEDICAID [facility] MEDICARE HMO/HMO-POS Care Teams Assessment Manager Relationship Specialty Start Date End Date Mic Kiran DO [address] [place] [address] PCP - General Family Medicine 10/09/22 Rainer Swartz MD [address] [place] [address] Surgeon Vascular Surgery 03/02/25
[2025-03-22 15:04] LABS: Hematocrit 43.2 % (42.0-54.0); Hemoglobin 15.3 g/dL (14.0-18.0); Immature Granulocytes Abs Auto 0.02 10^3/uL (0.00-0.03); Immature Granulocytes Pct Auto 0.2 % (0.0-0.5); Lymphocytes Absolute Auto 2.4 10^3/uL (1.2-3.8); Mean Corpuscular HGB Conc 35.4 g/dL (29.9-35.2); Mean Corpuscular Hemoglobin 31.8 pg (25.9-34.0); Mean Corpuscular Volume 89.8 fL (80.0-94.0); Platelet Count 297 10^3/uL (150-450); Red Blood Count 4.81 10^6/uL (4.70-6.10); White Blood Count 9.9 10^3/uL (4.0-11.0)
[2025-03-22] MEDS: 0.9 % SODIUM CHLORIDE 1,000 ML 1000 ML IV (15:19)
[2025-03-22 15:21] LABS: Alanine Aminotransferase 30 U/L (16-63); Albumin Globulin Ratio 0.9; Albumin Level 3.2 g/dL (3.4-5.0); Alkaline Phosphatase 106 U/L (46-116); Anion Gap 13.0; Aspartate Amino Transferase 28 U/L (15-37); Blood Urea Nitrogen 13.0 mg/dL (7.0-18.0); Calcium 8.8 mg/dL (8.5-10.1); Carbon Dioxide 27.3 mmol/L (21.0-32.0); Chloride 109 mmol/L (98-107); Estimated GFR (African America >60 (>=60 mL/min/1.73m^2); Estimated GFR (Non-African Ame >60 (>=60 mL/min/1.73m^2); Globulin 3.5 g/dL; Glucose 105 mg/dL (74-106); Potassium 4.3 mmol/L (3.5-5.1); Sodium 145 mmol/L (136-145); Total Protein 6.7 g/dL (6.4-8.2)
--- NOTE | 2025-03-22 15:34 | ED.GENADUL1 ---
HPI HPI - General Adult General Chief complaint: Dizziness Stated complaint: DIZZINESS, NAUSEA Time Seen by Provider: 03/22/25 14:44 Source: patient Mode of arrival: walk-in History of Present Illness HPI narrative: The patient is a 65-year-old male who presents to the emergency department today for evaluation of concerns for dizziness with intermittent nausea and a headache. Historically these symptoms have been ongoing for the past week and mentions he will have rapid onset and resolution of dizziness that lasts approximately 30 seconds and will be associated with nausea. He mentions he does intermittently have headaches. No chest pain or shortness of breath. He denies any abdominal pain, vomiting, or diarrhea. No urinary symptoms or back/flank pain. No additional sick symptoms of fever/chills or cough/cold symptoms. He denies any significant cardiovascular history including ME or CVA. No history of hypertension, hyperlipidemia, or diabetes. He does endorse he had a provoked PE within the past year 2/2 shoulder surgery and had been on Eliquis up until last month when it was discontinued per his providers recommendation after 6 months. Stable shortness of breath. Related Data Home Medications ?Medication ?Instructions ?Recorded ?Confirmed levothyroxine 50 mcg tablet 50 mcg PO QAM 03/22/25 03/22/25 montelukast 10 mg tablet 10 mg PO QPM 03/22/25 03/22/25 omeprazole 20 mg capsule,delayed 20 mg PO QAM 03/22/25 03/22/25 release tamsulosin 0.4 mg capsule 0.8 mg PO QPM 03/22/25 03/22/25 Previous Rx's ?Medication ?Instructions ?Recorded meclizine 25 mg tablet 25 mg PO TID PRN dizziness #10 tabs 03/22/25 ondansetron 4 mg disintegrating 4 mg PO Q8H PRN nausea and 03/22/25 tablet vomiting 4 days #10 tabs Allergies Allergy/AdvReac Type Severity Reaction Status Date / Time Penicillins Allergy Severe Rash Verified 03/22/25 14:50 Review of Systems ROS Status of ROS 10 or more systems reviewed and unremarkable except as noted in history and below Exam Narrative Exam Narrative: Constituational: Awake/ alert, no apparent distress, well hydrated HENMT: normocephalic, internal/external ears normal, moist oral mucous membranes and oropharynx normal Eyes: PERRL/EOMI and conjunctivae normal Neck: ROM intact Chest: inspection of chest normal Respiratory: Normal respiratory effort, clear to auscultation bilaterally Cardio: regular rate and regular rhythm GI: soft to palpation and non-tender Back: nontender MSK: ROM intact, +NVI Skin: no rashes or petechiae Neuro: no focal deficits, moves all extremities with normal and equal strength Psych: mental status grossly normal Constitutional Vital Signs, click to edit/add: Last Vital Signs Temp 99.0 F 03/22/25 14:44 Pulse 73 03/22/25 16:55 Resp 17 03/22/25 16:00 BP 127/77 03/22/25 16:55 Pulse Ox 95 03/22/25 15:08 O2 Del Method Room Air 03/22/25 14:44 Course Vital Signs Vital signs: Vital Signs Temperature 99.0 F 03/22/25 14:44 Pulse Rate 80 03/22/25 14:44 Respiratory Rate 18 03/22/25 14:44 Blood Pressure 158/84 H 03/22/25 14:44 Pulse Oximetry 95 03/22/25 14:44 Oxygen Delivery Method Room Air 03/22/25 14:44 Temperature 99.0 F 03/22/25 14:44 Pulse Rate 73 03/22/25 16:55 Respiratory Rate 17 03/22/25 16:00 Blood Pressure 127/77 03/22/25 16:55 Pulse Oximetry 95 03/22/25 15:08 Oxygen Delivery Method Room Air 03/22/25 14:44 Medical Decision Making MDM Narrative Medical decision making narrative: Patient is a well-appearing 65-year-old male who presented to the emergency department today for evaluation concerns for dizziness. Historically patient has had intermittent episodes of dizziness with rapid onset and resolution with associated symptoms of nausea and a headache that he reports will last for approximately 30 seconds with each occurrence. Examination and vital signs overall stable. No concerning neurologic or strokelike findings on exam. He additionally appears euvolemic on exam. No evidence concerning for infectious processes such as URI or sinusitis present. EKG without acute changes and troponin negative x 1. CT imaging of head without critical findings. Labs stable as below. Urinalysis additionally without evidence of UTI. Orthostatic vital signs were mildly positive with SBP 120s >> 100s with standing, per nursing patient was asymptomatic with this. Patient did receive a liter of IV fluids and on reevaluation orthostatic vital signs are stable and he continues to be well-appearing and hemodynamically stable otherwise. Patient's symptoms appear more consistent with vertigo. Will discharge home with meclizine and Zofran as needed. Advised on close follow-up with patient's primary care provider for reevaluation. Will additionally provide a referral for ENT for follow-up. Discussed signs and symptoms of any worsening condition and when to consider reevaluation by the emergency department. Patient verbalized an understanding of this and is agreeable with the plan to be discharged home. Medical Records Medical records reviewed: Yes I reviewed the patient's medical records Lab Data Lab results reviewed: Yes I reviewed the patient's lab results Labs: Lab Results 03/22/25 03/22/25 Range/Units 14:55 16:05 WBC 9.9 (4.0-11.0) 10^3/uL RBC 4.81 (4.70-6.10) 10^6/uL Hgb 15.3 (14.0-18.0) g/dL Hct 43.2 (42.0-54.0) % MCV 89.8 (80.0-94.0) fL MCH 31.8 (25.9-34.0) pg MCHC 35.4 H (29.9-35.2) g/dL RDW 12.7 (11.0-15.0) % Plt Count 297 (150-450) 10^3/uL MPV 9.9 (9.5-13.5) fL Neut % (Auto) 57.8 (43.0-75.0) % Lymph % (Auto) 24.2 (20.5-60.0) % Izard % (Auto) 6.8 (1.7-12.0) % Eos % (Auto) 10.1 H (0.9-7.0) % Baso % (Auto) 0.9 (0.2-2.0) % Neut # (Auto) 5.7 (1.4-6.5) 10^3/uL Lymph # (Auto) 2.4 (1.2-3.8) 10^3/uL Izard # (Auto) 0.7 (0.3-0.8) 10^3/uL Eos # (Auto) 1.0 H (0.0-0.7) 10^3/uL Baso # (Auto) 0.1 (0.0-0.1) 10^3/uL Abs Immat Gran (auto) 0.02 (0.00-0.03) 10^3/uL Imm/Tot Granulo (auto) 0.2 (0.0-0.5) % Sodium 145 (136-145) mmol/L Potassium 4.3 (3.5-5.1) mmol/L Chloride 109 H (98-107) mmol/L Carbon Dioxide 27.3 (21.0-32.0) mmol/L Anion Gap 13.0 BUN 13.0 (7.0-18.0) mg/dL Creatinine 1.00 (0.70-1.30) mg/dL Est GFR ( Amer) >60 (>=60 mL/min/1.73m^2) Est GFR (Non-Af Amer) >60 (>=60 mL/min/1.73m^2) BUN/Creatinine Ratio 13.0 Glucose 105 (74-106) mg/dL Calcium 8.8 (8.5-10.1) mg/dL Total Bilirubin 0.8 (0.2-1.0) mg/dL AST 28 (15-37) U/L ALT 30 (16-63) U/L Alkaline Phosphatase 106 (46-116) U/L Troponin I High Sens 4.6 (4.0-76.1) pg/mL Total Protein 6.7 (6.4-8.2) g/dL Albumin 3.2 L (3.4-5.0) g/dL Globulin 3.5 g/dL Albumin/Globulin Ratio 0.9 Urine Color Lt. yellow (YELLOW) Urine Clarity Clear (CLEAR) Urine pH 6.5 (5.0-9.0) Ur Specific [place] 1.020 (1.005-1.025) Urine Protein Negative (NEG/TRACE) mg/dL Urine Glucose (UA) Negative (NEGATIVE) mg/dL Urine Ketones Negative (NEGATIVE) mg/dL Urine Occult Blood Negative (NEGATIVE) Urine Nitrite Negative (NEGATIVE) Urine Bilirubin Negative (NEGATIVE) Urine Urobilinogen 1.0 (0.2-1.0) EU/dL Ur Leukocyte Esterase Negative (NEGATIVE) Imaging Data CT scan - head: Attestation: I have reviewed the pertinent imaging results. Radiologist's impression: ITS Impressions Head CT 03/22/25 14:51 IMPRESSION: NO ACUTE INTRACRANIAL ABNORMALITY. MODERATE CHRONIC SMALL VESSEL CHANGE Impression dictated by: Andres Arias M.D. 03/22/2025 3:29 PM Dictation Location: [place] [address] Electronically authenticated by: [id number] Y Date: 03/22/2025 15:29 ECG Data Attestation: I personally reviewed and interpreted this ECG as follows: (SR with HR 64, no acute/ischemic changes) Discharge Plan Discharge Chief Complaint: Dizziness Clinical Impression: Vertigo Patient Disposition: Home, Self-Care Prescriptions / Home Meds: New meclizine 25 mg tablet 25 mg PO TID PRN (Reason: dizziness) Qty: 10 0RF ondansetron 4 mg tablet,disintegrating 4 mg PO Q8H PRN (Reason: nausea and vomiting) 4 Days Qty: 10 0RF No Action levothyroxine 50 mcg tablet 50 mcg PO QAM montelukast 10 mg tablet 10 mg PO QPM omeprazole 20 mg capsule,delayed release(DR/EC) 20 mg PO QAM tamsulosin 0.4 mg capsule 0.8 mg PO QPM Print Language: Maltese Instructions: Vertigo (DC), Dizziness (ED) Additional Instructions: May take meclizine as needed for any dizziness and Zofran as needed for any nausea or vomiting if this occurs. May take Tylenol as needed for any headaches. Stay hydrated. Change positions slowly. Please follow-up closely with your primary care provider for reevaluation as discussed. May return to the ER with any new or worsening symptoms/concerns. Referrals: Genet Magana MD [Physician, Ear, Nose, Throat] - 1 week Referral Note: vertigo Physician,Non-Staff, [Primary Care Provider] - 1 week
[2025-03-22 16:15] LABS: Glucose Urine UA NEGATIVE (NEGATIVE)
== END 2025-03-22 17:08 | disposition home or self-care (01) ==
PROVIDERS: Nurse Practitioner; Emergency Provider Emergency Medicine
DX: R42 Dizziness and giddiness (principal); Z86.711 Personal history of pulmonary embolism; Z79.01 Long term (current) use of anticoagulants
CPT/HCPCS: 36415; 70450; 80053; 81003; 84484; 85025; 93005; 96360; 96361; 99285